=== PATIENT | female | born 1940 | race Caucasian/White ===

== ENCOUNTER → 2023-06-17 12:05 | Outpatient (REF) | payer OTHER, SELFPAY | LOC: RAD 12:05 | PROVIDERS: ATTENDING PHYSICIAN Nurse Practitioner Family | DX: R07.9 Chest pain, unspecified (principal) | CPT/HCPCS: 71046 ==

== ENCOUNTER 2023-07-13 13:18 | Emergency (ER) | payer OTHER, SELFPAY ==
[2023-07-13 13:19] VITALS: BP 165/94
--- NOTE | 2023-07-13 13:35 | ED.MUSCINJ ---
HPI-Injury
General
Chief Complaint: Fall
Source: patient
Exam Limitations: none
Time Seen by Provider: 07/13/23 13:34
Nursing documentation reviewed up to this point in time: agreed with
Travel History
Have you had any contact with someone who has COVID-19?: No
Do you have any symptoms of coronavirus? Fever > 100 degrees, chills, cough, shortness of breath, sore throat, loss of taste or smell, muscle aches, or headache?: No
History of Present Illness-Injury
Initial Injury comments:
82-year-old female with history of HTN, HLD, states she was at outpatient registration for an outpatient right hip x-ray when her foot got caught in the chair and she fell onto her left side. She now has pain in the lower left rib area and also the
left knee. She denies hitting her head. She is not anticoagulated.
Past History
Past History
ED Past Medical History: GERD, HTN, Hypercholesterolemia, Psychiatric (MDD) and Other (sciatica , raynouds, diverticulitis, IBS, Anemia, Thrombocytopenia, scleroderma); Negative CAD
ED Past Surgical History: Gynecological (hysterectomy Partial) and Orthopedic (R median nerve wrap,, left patella repair. Back surgery, Right tendon arm repair); Negative Cardiac
Social History
Tobacco: Non-smoker
Alcohol: None
Drug: None
Personal:
Living: alone
Employment: Retired
Family History
Family History: CAD
Review of Systems
Review of Systems
Allergies reviewed?: Yes
All Other Systems: ROS reviewed and negative except as documented in HPI and ROS
Constitutional: Denies fever
Respiratory: Denies trouble breathing
Cardiac: Denies chest pain
ABD/GI: Denies abdominal pain
: Denies incontinence
Musculoskeletal: Reports other (acute pain left ribs, left knee, chronic right hip pain); Denies edema, neck pain or back pain
Skin: Reports no symptoms
Neurological: Reports no symptoms
Phy Exam
Physical Exam
Physical Exam:
GENERAL: No acute distress. A&Ox3.
CONSTITUTIONAL: Afebrile.
EYES: Clear, conjunctivae normal
ENMT: moist mucus membranes, Pharynx nl
RESPIRATORY: Regular respirations, nonlabored, lungs clear.
CARDIOVASCULAR: Regular rate and rhythm, no murmurs, no rubs.
GI: Soft, nontender, normal BS
MUSCULOSKELETAL: No spinal bony tenderness. Tender mid to lower left lateral ribs, no swelling or discoloration here. Left knee with small area of mild ecchymosis and superficial abrasion, no significant bony tenderness. Full range of motion.
Both legs with full range of motion, ambulates well. Moves with ease. Well perfused.
SKIN: Warm, dry, pink
PSYCH: Normal mood and affect. Well kept, interactive and appropriate
NEUROLOGIC: Awake, alert and oriented. No focal neurological deficits
Injury Course
Orders/Labs/Results
Orders:
Orders
07/13/23 13:46
CR Knee - Left 4 Or More View* Urgent
Comment:
Reason For Exam: fall
Hip, Right 2-3 Views [CR Hip - RT w/wo Pel 2-3 Vw*] Urgent
Comment:
Reason For Exam: PCP order, fell in registration for out pt xray
Include a pelvis x-ray?: No
Ribs, Left 3 View W/PA Chest CR [CR Ribs-left 3 Vw W/pa Chest] Urgent
Comment:
Reason For Exam: pain lower ribs afterf fall
MDM/Problems Addressed
MDM/Problems Addressed:
82-year-old female with history of HTN, HLD, states she was at outpatient registration for an outpatient right hip x-ray when her foot got caught in the chair and she fell onto her left side. She now has pain in the lower left rib area and also the
left knee. She denies hitting her head. She is not anticoagulated.
Patient is moving around relatively easily, she is able to get off the bed, twist [id number], ambulate well
X-rays initially read by this examiner:
X-ray left ribs: No acute abnormality noted, no obvious rib fractures
X-ray left knee: No acute abnormality noted
X-ray right hip added simply because she was here for an outpatient hip x-ray when she fell: DJD, no acute bony abnormality noted
Patient ambulated out with normal gait at discharge
*Critical Care Note
Total Time (30-74mins, 75-104mins- exclusive of procedures): Not Applicable
ED Attending Note
-
Portions of this chart may have been created with voice recognition software.� Occasional wrong word or��sound alike� substitutions may have occurred due to the inherent limitations of voice recognition software.
Discharge Plan
Departure
Patient Disposition: Home (Routine Discharge)
Date of Disposition: 07/13/23
Time of Disposition: 15:01
Patient with high blood pressure during this ER visit?: No
Condition: Good
Discharge Problem:
Fall from slip, trip, or stumble, Contusion of left knee, Contusion of rib on left side, Chronic pain of right hip
Instructions: Contusion (DC), Preventing falls in adults
Prescriptions:
No Action
latanoprost 1 DROP drops
1 drp BOTH EYES HS
aspirin 81 MG tablet,delayed release (DR/EC)
81 mg PO DAILY
hydroxyurea 500 MG capsule
500 mg PO MOWEFR
famotidine 20 MG tablet
20 mg PO DAILY
sertraline 50 MG tablet
50 mg PO HS
Prolia 60 MG/ML syringe
60 mg SQ .EVERY 6 MONTHS
amlodipine 5 mg tablet
5 mg PO HS
omeprazole 40 mg capsule,delayed release(DR/EC)
40 mg PO BID
budesonide 3 mg capsule,delayed,extend.release
3 mg PO TID
rosuvastatin 5 mg tablet
5 mg PO MOWEFR
levofloxacin 750 mg tablet
750 mg PO DAILY 10 Days Qty: 10 0RF
ciprofloxacin HCl [Cipro] 500 mg tablet
500 mg PO BID Qty: 20 0RF
Referrals:
Jaylen Arizmendi MD [Family Provider] - As needed
Activity Restrictions/Additional Instructions:
As we discussed, your right hip x-ray shows some degenerative disease/arthritis but no fracture or dislocation.
Your rib x-ray shows no fracture. Your knee x-ray shows no fracture
You may be stiff and sore for a couple of days but no significant injury.
Tylenol as needed for pain.
Interventions
Interventions:
*Risk Screen - Suicide Last Done: 07/13/23 13:48
*General Assessment Last Done: 07/13/23 13:48
*Neglect/Abuse Screening Last Done: 07/13/23 13:48
*Nursing Disposition Last Done: 07/13/23 15:23
ED-Musculoskeletal Assessment Last Done: 07/13/23 13:48
ED- Neurological Assessment Last Done: 07/13/23 13:48
ED-Skin Assessment Last Done: 07/13/23 13:48
Discharge Date and Time
Discharge Date/Time: 07/13/23 15:23
[2023-07-13 15:22] VITALS: BP 154/99
== END 2023-07-13 15:23 | disposition home or self-care (01) ==
LOC: EMR 13:18
PROVIDERS: EMERGENCY PHYSICIAN Emergency Medicine; FAMILY PHYSICIAN Family Medicine
DX: S80.02XA Contusion of left knee, initial encounter (principal); S20.20XA Contusion of thorax, unspecified, initial encounter; G89.29 Other chronic pain; M25.551 Pain in right hip; W01.0XXA Fall on same level from slipping, tripping and stumbling without subsequent striking against object, initial encounter; I10 Essential (primary) hypertension; K21.9 Gastro-esophageal reflux disease without esophagitis; E78.00 Pure hypercholesterolemia, unspecified; K58.9 Irritable bowel syndrome, unspecified; D64.9 Anemia, unspecified; D69.6 Thrombocytopenia, unspecified; M34.9 Systemic sclerosis, unspecified
CPT/HCPCS: 99283; 71101; 73502; 73564

== ENCOUNTER → 2023-07-16 10:20 | Outpatient (REF) | payer OTHER, SELFPAY | LOC: RAD 10:20 | PROVIDERS: ATTENDING PHYSICIAN Nurse Practitioner Family | DX: R07.81 Pleurodynia (principal); W19.XXXA Unspecified fall, initial encounter | CPT/HCPCS: 71101 ==

== ENCOUNTER 2023-08-20 16:12 | Emergency (ER) | payer OTHER, SELFPAY ==
[2023-08-20 16:16] VITALS: BP 148/96
[2023-08-20 16:35] LABS: % Basophils 0.6 % (0-2); % Eosinophils 1.8 % (0-6); % Immature Granulocytes 0.6 % (0-0.5); % Lymphocytes 21.8 % (20.5-51.1); % Monocytes 9.2 % (1.7-9.3); Absolute Eosinophils 0.1 10^3/uL (0-0.7); Absolute Lymphocytes 1.1 10^3/uL (1.2-3.4); Absolute Monocytes 0.5 10^3/uL (0.1-0.6); Absolute Neutrophils 3.3 10^3/uL (1.4-6.5); Hematocrit 33.1 % (37.0-47.0); Hemoglobin 11.7 g/dL (12.0-16.0); Mean Corp Hgb Conc. 35.3 g/dL (33.0-37.0); Mean Corpuscular Hgb 33.6 pg (27.0-31.0); Mean Corpuscular Volume 95.1 fL (81.0-99.0); Mean Platelet Volume 8.5 fL (7.4-10.4); Nucleated Red Blood Cells % 0 %; Platelet Count 278 10^3/uL (130-400); Red Blood Cell Count 3.48 10^6/uL (4.20-5.40); Red Cell Dist. Width 15.6 % (11.5-14.5)
[2023-08-20 16:46] LABS: INR 1.16; PT 14.6 Sec (11.4-14.6)
[2023-08-20 16:47] LABS: APTT 30.9 Sec (23.4-35.0)
[2023-08-20 16:57] LABS: ALT (SGPT) 16 U/L (0-35); AST (SGOT) 26 U/L (14-36); Albumin 4.7 g/dl (3.5-5.0); Alkaline Phosphatase 70 U/L (38-126); Blood Urea Nitrogen 19 mg/dl (7-17); Calcium 9.5 mg/dl (8.4-10.2); Carbon Dioxide 25 mmol/L (22-30); Chloride 96 mmol/L (98-107); Glucose 104 mg/dl (70-99); Potassium 4.3 mmol/L (3.5-5.1); Sodium 130 mmol/L (135-145); Total Bilirubin 0.4 mg/dl (0.2-1.3); Total Protein 7.4 g/dl (6.3-8.2); eGFR > 60.00
--- NOTE | 2023-08-20 17:39 | ED.GENMED ---
History of Present Illness
General
Chief Complaint: Rectal Bleeding
Source: patient
Exam Limitations: none
Time Seen by Provider: 08/20/23 17:24
Travel History
Have you had any contact with someone who has COVID-19?: No
Do you have any symptoms of coronavirus? Fever > 100 degrees, chills, cough, shortness of breath, sore throat, loss of taste or smell, muscle aches, or headache?: No
History of Present Illness
History of Present Illness:
See MDM
Past History
Past History
ED Past Medical History: GERD, HTN, Hypercholesterolemia, Psychiatric (MDD) and Other (sciatica , raynouds, diverticulitis, IBS, Anemia, Thrombocytopenia, scleroderma); Negative CAD
ED Past Surgical History: Gynecological (hysterectomy Partial) and Orthopedic (R median nerve wrap,, left patella repair. Back surgery, Right tendon arm repair); Negative Cardiac
Social History
Tobacco: Non-smoker
Alcohol: None
Drug: None
Personal:
Living: alone
Employment: Retired
Family History
Family History: CAD
Phy Exam
Physical Exam
Physical Exam:
See MDM
Course
Orders/Labs/Results
Orders:
Orders
08/20/23 16:24
Type+Screen Urgent
Complete Blood Count/With Diff Urgent
Comprehensive Metabolic Panel Urgent
PTT Urgent
Prothrombin Time Urgent
08/20/23 17:54
Budesonide [Entocort EC] 3 mg PO ONCE ONE
08/20/23 18:00
Budesonide [Entocort EC] 3 mg PO ONCE ONE
Budesonide [Entocort EC] 9 mg PO ONCE ONE
08/20/23 19:00
Budesonide [Entocort EC] 9 mg PO ONCE ONE
Abnormal Lab Results
08/20/23
16:24
RBC 3.48 L 10^6/uL
(4.20-5.40)
Hgb 11.7 L g/dL
(12.0-16.0)
Hct 33.1 L %
(37.0-47.0)
MCH 33.6 H pg
(27.0-31.0)
RDW 15.6 H %
(11.5-14.5)
Absolute Lymphs (auto) 1.1 L 10^3/uL
(1.2-3.4)
Immature Gran % 0.6 H %
(0-0.5)
Sodium 130 L mmol/L
(135-145)
Chloride 96 L mmol/L
(98-107)
BUN 19 H mg/dl
(7-17)
Glucose 104 H mg/dl
(70-99)
08/20/23 16:24
08/20/23 16:24
Vital Signs
Initial and Last Documented VS:
Initial Vital Signs
Temp Pulse Resp BP Pulse Ox
98.2 F 70 16 148/96 100
08/20/23 16:16 08/20/23 16:16 08/20/23 16:16 08/20/23 16:16 08/20/23 16:16
Last Documented Vital Signs
Temp Pulse Resp BP Pulse Ox
98.2 F 70 16 148/96 100
08/20/23 16:16 08/20/23 16:16 08/20/23 16:16 08/20/23 16:16 08/20/23 16:16
MDM/Problems Addressed
Differential Diagnosis Includes:
HPI and MDM Narrative:
83-year-old female presenting with dark red blood mixed with stools. Patient states she had 5 episodes today. She states he has a history of ulcerative colitis which was recently diagnosed on a colonoscopy 1 year ago. She states it is normal
stool consistency and the dark red blood appears to be mixed in with the stool. She states the blood escaped the stool once it enters the toilet and leaks out in the water. She denies abdominal pain.
At the time of my evaluation, blood work has returned showing baseline hemoglobin. Patient denies diarrhea or recent antibiotics
Physical exam
General: Well appearing and non-toxic
HEENT: protecting airway
Neck: appears supple
CV: No evidence of cyanosis
Resp: No accessory muscle use
Abd: Non-distended. Soft and nontender
Extremities: No deformities
Neuro: alert
Psych: Normal affect
Skin: Intact
Problems Addressed including Acute and Chronic Conditions affecting care:
1. Lower GI bleed
Acuity: acute
Prognosis: stable
Details: Hemoglobin at baseline. Abdomen soft and nontender. Will discuss case with GI
Updates
5:45 PM Case discussed with GI on-call. We discussed admission versus discharge. Given how well-appearing she is, not being on blood thinners and hemoglobin at baseline, we discussed restarting budesonide for the next 2 weeks and GI will continue
to follow. They will reach out Wednesday. Patient feels very comfortable this plan. I spoke to her son Rey and updated him as well. I did however discuss with patient that she must return at any time if she feels uncomfortable, if the bleeding
increases or she develops worsening pain or fever. We also discussed returning if she develops weakness or fatigue
Differential Diagnosis (but not limited to): Colitis, diverticulitis
Testing considered: CT abdomen/pelvis but she has no abdominal
Drug therapy (if applicable): OTC meds, please see d/c instruction regarding Rx drugs
Amount and/or Complexity of Data Reviewed
Clinical info obtained from: Patient
External data reviewed: N/A
Labs I independently reviewed (but not limited to): [Hemoglobin at baseline
Radiology: N/A
Pulse Ox: not hypoxic
EKG independently reviewed: N/A
Integration Software Developer: N/A
Critical Care: N/A
Risk of Complication:
Social Determinants of health: Good social support
Discussed with other providers: Gastroenterology
Escalation of Care includes Admit/Obs: After being observed in the Emergency Department, pt stable for discharge.
Occasional wrong word or 'sound a like' substitutions may have occurred due to the inherent limitations of voice recognition software. Read the chart carefully and recognize, using context, where substitutions have occurred.
*Critical Care Note
Total Time (30-74mins, 75-104mins- exclusive of procedures): Not Applicable
ED Attending Note
-
Portions of this chart may have been created with voice recognition software.� Occasional wrong word or��sound alike� substitutions may have occurred due to the inherent limitations of voice recognition software.
Discharge Plan
Departure
Patient Disposition: Home (Routine Discharge)
Date of Disposition: 08/20/23
Time of Disposition: 17:54
Patient with high blood pressure during this ER visit?: Yes
Discharge Problem:
Colitis
Instructions: Gastrointestinal Bleeding (DC)
Prescriptions:
New
budesonide [Uceris] 9 mg tablet,delayed and ext.release
9 mg PO DAILY Qty: 14 0RF
No Action
latanoprost 1 DROP drops
1 drp BOTH EYES HS
aspirin 81 MG tablet,delayed release (DR/EC)
81 mg PO DAILY
hydroxyurea 500 MG capsule
500 mg PO MOWEFR
famotidine 20 MG tablet
20 mg PO DAILY
sertraline 50 MG tablet
50 mg PO HS
Prolia 60 MG/ML syringe
60 mg SQ .EVERY 6 MONTHS
amlodipine 5 mg tablet
5 mg PO HS
omeprazole 40 mg capsule,delayed release(DR/EC)
40 mg PO BID
budesonide 3 mg capsule,delayed,extend.release
3 mg PO TID
rosuvastatin 5 mg tablet
5 mg PO MOWEFR
levofloxacin 750 mg tablet
750 mg PO DAILY 10 Days Qty: 10 0RF
ciprofloxacin HCl [Cipro] 500 mg tablet
500 mg PO BID Qty: 20 0RF
Referrals:
NONE,* [Active] -
Activity Restrictions/Additional Instructions:
Please return for any worsening symptoms.
You may return at any time if you have further concerns.
The gastroenterology team is aware you were here today. They want to restart your steroids. I wrote for a 2-week supply. They will reach out Wednesday. If you do not hear from them, please give them a call.
Please return if you develop worsening bleeding, worsening belly pain, fevers or any weakness or fatigue.
Thank you for choosing [facility].
Interventions
Interventions:
*Risk Screen - Suicide Last Done: 08/20/23 16:16
*General Assessment Last Done: 08/20/23 16:16
*Neglect/Abuse Screening Last Done: 08/20/23 16:16
ED- Fall Risk Assessment Last Done: 08/20/23 17:46
*ED COVID-19 Vaccine History Last Done: 08/20/23 17:46
EI-Kbhzdg-Wvynhycmpm Assessment Last Done: 08/20/23 17:46
ED- Cardiac Assessment Last Done: 08/20/23 17:46
ED- Pulmonary Assessment Last Done: 08/20/23 17:46
Discharge Date and Time
Print Language: MOHAWK
[2023-08-20 17:46] VITALS: BMI 17.4
[2023-08-20] MEDS: ENTOCORT EC 9 MG PO (18:13)
[2023-08-20 19:04] VITALS: BP 145/80
== END 2023-08-20 19:07 | disposition home or self-care (01) ==
LOC: EMR 16:12
PROVIDERS: EMERGENCY PHYSICIAN Student in an Organized Health Care Education/Training Program; FAMILY PHYSICIAN Family Medicine
DX: K52.9 Noninfective gastroenteritis and colitis, unspecified (principal); I10 Essential (primary) hypertension; E78.00 Pure hypercholesterolemia, unspecified; K21.9 Gastro-esophageal reflux disease without esophagitis; K58.9 Irritable bowel syndrome, unspecified; K57.92 Diverticulitis of intestine, part unspecified, without perforation or abscess without bleeding; I73.00 Raynaud's syndrome without gangrene; M34.9 Systemic sclerosis, unspecified; F32.9 Major depressive disorder, single episode, unspecified; D64.9 Anemia, unspecified; Z88.6 Allergy status to analgesic agent; Z88.1 Allergy status to other antibiotic agents; Z88.5 Allergy status to narcotic agent; Z79.82 Long term (current) use of aspirin
CPT/HCPCS: 99283; 80053; 85025; 85610; 85730; 86850; 86900; 86901

== ENCOUNTER → 2023-09-06 11:23 | Outpatient (REF) | payer OTHER, SELFPAY | LOC: RAD 11:23 | PROVIDERS: ATTENDING PHYSICIAN Family Medicine | DX: M25.511 Pain in right shoulder (principal) | CPT/HCPCS: 73030 ==

== ENCOUNTER → 2023-10-11 08:00 | Outpatient (REF) | payer OTHER, SELFPAY | LOC: DHCBC/DCA 08:00 | PROVIDERS: ATTENDING PHYSICIAN Internal Medicine Interventional Cardiology; FAMILY PHYSICIAN Family Medicine | DX: R07.89 Other chest pain (principal) | CPT/HCPCS: 78452; 93017; A9500; J2785 ==

== ENCOUNTER → 2023-12-01 10:27 | Outpatient (REF) | payer OTHER, SELFPAY | LOC: RAD 10:27 | PROVIDERS: ATTENDING PHYSICIAN Internal Medicine; FAMILY PHYSICIAN Family Medicine | DX: R10.0 Acute abdomen (principal); K59.00 Constipation, unspecified | CPT/HCPCS: 74019 ==

== ENCOUNTER → 2024-01-07 12:20 | Outpatient (REF) | payer OTHER, SELFPAY | LOC: RAD 12:20 | PROVIDERS: ATTENDING PHYSICIAN Internal Medicine; FAMILY PHYSICIAN Family Medicine | DX: M81.0 Age-related osteoporosis without current pathological fracture (principal) | CPT/HCPCS: 77080 ==

== ENCOUNTER 2024-04-25 13:10 | Emergency (ER) | payer OTHER, SELFPAY ==
[2024-04-25 13:22] VITALS: BP 142/85
--- NOTE | 2024-04-25 14:49 | ED.GENMED ---
History of Present Illness
General
Chief Complaint: Fall
Time Seen by Provider: 04/25/24 14:31
History of Present Illness
History of Present Illness:
Patient is a 83-year-old woman presenting to the emergency department after a fall. Patient states that she was shopping this now when she fell forward hitting her head. She did not lose consciousness. She is not on any blood thinners. She did
land on her left hand. She is complaining of diffuse pain to her left hand. She does have history of Raynaud's and scleroderma and her left hand is always more swollen than her right. No numbness tingling. No weakness. Denies any pain
elsewhere. She does note that she had some bleeding as she bit her lip however it did resolve shortly.
Past History
Past History
ED Past Medical History: GERD, HTN, Hypercholesterolemia, Psychiatric (MDD) and Other (sciatica , raynouds, diverticulitis, IBS, Anemia, Thrombocytopenia, scleroderma); Negative CAD
ED Past Surgical History: Gynecological (hysterectomy Partial) and Orthopedic (R median nerve wrap,, left patella repair. Back surgery, Right tendon arm repair); Negative Cardiac
Social History
Tobacco: Non-smoker
Alcohol: None
Drug: None
Personal:
Living: alone
Employment: Retired
Family History
Family History: CAD
Phy Exam
Physical Exam
Physical Exam:
GENERAL: no acute distress
HEENT: atraumatic, extraocular muscles intact, no signs of entrapment, dentition intact, dried blood to the left side of the mouth, left upper lip at the lateral aspect slightly swollen with small intraoral abrasion with bleeding that is controlled
NECK: no midline tenderness, normal range of motion, no other obvious trauma
BACK: no midline tenderness, no other obvious trauma
CHEST: no tenderness, no flail segment, no subcutaneous emphysema, no other obvious trauma
LUNGS: clear to auscultation bilaterally
CARDIOVASCULAR: regular rate and rhythm
ABDOMEN: soft, non-tender, no masses, no other obvious trauma
PELVIS: stable, no obvious injury
EXTREMITIES: moving all extremities, distal pulses intact, left hand with diffuse swelling, diffuse tenderness over the metacarpals, neurovascularly intact
NEUROLOGIC: awake, alert x 3, no focal deficits
Course
Orders/Labs/Results
Orders:
Orders
04/25/24 13:27
CR Hand - Left Min 3 Views Urgent
Reason For Exam: pain, swelling
04/25/24 14:49
CT Head W/o Iv Contrast Urgent
Comment:
Reason For Exam: fall
Vital Signs
Initial and Last Documented VS:
Initial Vital Signs
Temp Pulse Resp BP Pulse Ox
98.2 F 93 18 142/85 94
04/25/24 13:22 04/25/24 13:22 04/25/24 13:22 04/25/24 13:22 04/25/24 13:22
Last Documented Vital Signs
Temp Pulse Resp BP Pulse Ox
98.2 F 93 18 142/85 94
04/25/24 13:22 04/25/24 13:22 04/25/24 13:22 04/25/24 13:22 04/25/24 13:22
MDM/Problems Addressed
Differential Diagnosis Includes:
Patient is a 83-year-old woman presenting to the emergency department after a fall where she hit her head and landed on her left hand. Vitals unremarkable on exam does show slight swelling to the left lateral lip as well as swelling to her left
hand. Concern for traumatic intracranial injury as well as possible fracture. Patient is up-to-date on her tetanus vaccine. Will obtain CT scan of her head as well as x-ray of the hand. Will pain control. Will remove her rings
*Critical Care Note
Total Time (30-74mins, 75-104mins- exclusive of procedures): Not Applicable
Update Note
Update Note:
On reevaluation patient resting comfortably. The hand swelling has slightly improved with ice and elevation. Her rings have been removed. CT scan of the head per my interpretation with no obvious hemorrhage. Per the official read no acute
intracranial abnormality as well as no acute fracture. Will discharge at this time
ED Attending Note
-
Portions of this chart may have been created with voice recognition software.� Occasional wrong word or��sound alike� substitutions may have occurred due to the inherent limitations of voice recognition software.
Discharge Plan
Departure
Patient Disposition: Home (Routine Discharge)
Date of Disposition: 04/25/24
Time of Disposition: 15:32
Patient with high blood pressure during this ER visit?: No
Discharge Problem:
Fall
Instructions: Concussion, Adult (DC), Preventing falls in adults
Prescriptions:
No Action
latanoprost 1 DROP drops
1 drp BOTH EYES HS
aspirin 81 MG tablet,delayed release (DR/EC)
81 mg PO DAILY
hydroxyurea 500 MG capsule
500 mg PO MOWEFR
famotidine 20 MG tablet
20 mg PO DAILY
sertraline 50 MG tablet
50 mg PO HS
Prolia 60 MG/ML syringe
60 mg SQ .EVERY 6 MONTHS
amlodipine 5 mg tablet
5 mg PO HS
omeprazole 40 mg capsule,delayed release(DR/EC)
40 mg PO BID
budesonide 3 mg capsule,delayed,extend.release
3 mg PO TID
rosuvastatin 5 mg tablet
5 mg PO MOWEFR
levofloxacin 750 mg tablet
750 mg PO DAILY 10 Days Qty: 10 0RF
ciprofloxacin HCl [Cipro] 500 mg tablet
500 mg PO BID Qty: 20 0RF
budesonide [Uceris] 9 mg tablet,delayed and ext.release
9 mg PO DAILY Qty: 14 0RF
Referrals:
Jaylen Arizmendi MD [Family Provider] -
Activity Restrictions/Additional Instructions:
You were seen in the Emergency Department today for a fall. Your x-ray and CT scan did not show anything broken or bleeding.
We would like for you to follow up with your primary care physician for further evaluation. If you experience fever, worsening of your symptoms, or develop any other new or concerning symptoms, please return to the Emergency Department immediately.
Please see the attached sheet for additional information.
Thank you for choosing us for your care
Interventions
Interventions:
*Risk Screen - Suicide Last Done: 04/25/24 13:22
Discharge Date and Time
Print Language: HUNGARIAN
--- NOTE | 2024-04-25 15:47 | EDRN ---
Discharged pt; pt had ring removal by KENTON Peraza before imaging. Pt ambulatory, awake, and alert. Pt reports has ride home, waiting for son.
== END 2024-04-25 15:58 | disposition home or self-care (01) ==
LOC: EMR 13:10
PROVIDERS: EMERGENCY PHYSICIAN Student in an Organized Health Care Education/Training Program; FAMILY PHYSICIAN Family Medicine
DX: S00.512A Abrasion of oral cavity, initial encounter (principal); M79.642 Pain in left hand; W19.XXXA Unspecified fall, initial encounter; K21.9 Gastro-esophageal reflux disease without esophagitis; I10 Essential (primary) hypertension; E78.00 Pure hypercholesterolemia, unspecified
CPT/HCPCS: 99284; 70450; 73130

== ENCOUNTER 2024-05-10 04:10 | Inpatient (IN) | payer OTHER, SELFPAY ==
[2024-05-10] VITALS (29 sets, daily range): BP systolic 77–153; BP diastolic 63–96; BMI 18.6; BMI 17.7
--- NOTE | 2024-05-10 01:10 | ED.GENMED ---
History of Present Illness
General
Chief Complaint: Rectal Bleeding
Source: patient
Exam Limitations: none
Time Seen by Provider: 05/10/24 00:58
History of Present Illness
History of Present Illness:
83-year-old female sudden onset of rectal bleeding at about 930 this evening. Having 5-6 episodes of significant bright red rectal bleeding. No pain. Some abdominal cramps. No lightheadedness or weakness. History of GI bleed and ulcerative
colitis however this is much more severe.
Past History
Past History
ED Past Medical History: GERD, HTN, Hypercholesterolemia, Psychiatric (MDD) and Other (sciatica , raynouds, diverticulitis, IBS, Anemia, Thrombocytopenia, scleroderma); Negative CAD
ED Past Surgical History: Gynecological (hysterectomy Partial) and Orthopedic (R median nerve wrap,, left patella repair. Back surgery, Right tendon arm repair); Negative Cardiac
Social History
Tobacco: Non-smoker
Alcohol: None
Drug: None
Personal:
Living: alone
Employment: Retired
Family History
Family History: CAD
Review of Systems
Review of Systems
All Other Systems: Not applicable
Constitutional: Denies fever
Respiratory: Reports no symptoms
Cardiac: Reports no symptoms
Phy Exam
Physical Exam
Physical Exam:
GENERAL: Alert and oriented in no apparent distress
EYE: Orbits normal.
NECK: Supple
CARDIAC: Regular rate and rhythm without any obvious murmurs.
LUNGS: Clear breath sounds,normal
ABDOMEN: Soft, without focal tenderness or distention. Large amount of blood and clotted blood on the blue pad. Rectal exam with bright red blood in the fingertip. External hemorrhoids not actively bleeding.
NEUROLOGICAL: Alert and oriented , grossly non-focal
SKIN: Warm and dry, no rash or lesion, no discoloration, skin intact.
MUSCULOSKELETAL: No edema,no deformity.Good color
PSYCH: Normal and appropriate interaction.
Course
Orders/Labs/Results
Orders:
Orders
05/10/24 00:58
Cardiac Monitoring- Treatment ONCE
IV Insert/Care/Rem.- Treatment PRN
05/10/24 01:01
Type+Screen Urgent
Complete Blood Count/With Diff Urgent
Comprehensive Metabolic Panel Urgent
05/10/24 01:07
CT Abd/pelvis Angio W/wo Iv Urgent
Comment:
Reason For Exam: Severe lower GI bleed
05/10/24 03:00
Flush (0.9% Sodium Chloride) [Flush (Nss)] See Dose Instructions IV PER PROTOCOL
05/10/24 03:49
Admit/Transfer Patient As Directed
Co-Sign Provider:
Level of Care: Inpatient admission
Assign to:: IMU- Intermediate Care
Physician / Group: Dr. Amaya
Diagnosis: Lower GI bleed
Reason for Hospitalization: Lower GI bleed
Expected length of stay greater than two midnights?: Yes
ELOS- Estimated Length of Stay in days: 5
I certify the patient meets the requirements for IP care: Yes
PRN Pain Medication Management As Directed
May give lesser potent ordered pain med per pt: Yes
preference::
Protocol:: Medication orders for pain may be administered in a
manner that supports deferring to patient preference
when the pt is:
- Requesting an ordered lesser potent pain medication.
Least to most potent pain medications are defined
as: acetaminophen < NSAID < tramadol < opioids
(morphine, oxycodone, hydromorphone).
- Requesting a lesser dose of the same medication IF
ORDERED.
- Requesting a less intrusive route of administration
if both routes are prescribed by the provider (PO <
IV).
05/10/24 03:53
Code Status As Directed
Resuscitation Status: Do not resuscitate
Reached after discussion with pt or family/Healthcare POA: Yes
05/10/24 03:54
DNR Bracelet Application ONCE
05/10/24 04:25
Dextrose 5%/0.9%Sodchl 1000 ml [D5/0.9% Sodium Chloride] 1,000 ml IV 125 mls/hr
05/10/24 04:25
GASTROINTESTINAL CONSULT Routine
Consulting Provider: Kayleen Zhu
Was physician already notified: Yes
Activity As Directed
Activity Level: As Tolerated
INT (Intravenous Needle Therapy) As Directed
Comment: Place 2 IV catheters of the largest bore possible until stable
Orthostatic Vital Signs As Directed
Orthostatic VS Frequency: Now
Comment: then every four hours for twenty-four hours
Pneumatic Compression Sleeves As Directed
Type: Knee high
Vital Signs As Directed
Frequency: Per unit guidelines
DX Deep Vein Thrombosis Video Routine
05/10/24 Breakfast
NPO
Allow oral meds: Yes
Allow clear liquids: No
05/10/24 07:36
H&H Q6H
05/10/24 08:00
Pantoprazole [Protonix IV] 40 mg IV DAILY
05/10/24 15:05
H&H Q6H
05/10/24 19:00
H&H Q6H
05/10/24 22:00
Rosuvastatin Calcium [Crestor] 5 mg PO MoWeFr@HS
Sertraline HCl [Zoloft] 50 mg PO HS
Abnormal Lab Results
05/10/24
01:01
RBC 3.78 L 10^6/uL
(4.20-5.40)
Hct 35.8 L %
(37.0-47.0)
MCH 33.1 H pg
(27.0-31.0)
RDW 15.2 H %
(11.5-14.5)
Abs Immat Gran (auto) 0.1 H 10^3/uL
(0-0.05)
Immature Gran % 2.3 H %
(0-0.5)
Monocytes % 9.6 H %
(1.7-9.3)
Sodium 131 L mmol/L
(135-145)
Chloride 95 L mmol/L
(98-107)
BUN 18 H mg/dl
(7-17)
Glucose 111 H mg/dl
(70-99)
05/10/24 01:01
05/10/24 01:01
Vital Signs
Initial and Last Documented VS:
Initial Vital Signs
Temp Pulse Resp BP
98.0 F 101 20 151/86
05/10/24 00:46 05/10/24 00:46 05/10/24 00:46 05/10/24 00:46
Last Documented Vital Signs
Temp Pulse Resp BP Pulse Ox
98.3 F 73 12 127/57 90
05/10/24 23:32 05/11/24 04:24 05/11/24 04:24 05/11/24 04:24 05/11/24 04:24
MDM/Problems Addressed
Differential Diagnosis Includes:
Stable vital signs but significant lower GI bleed on exam and based on history. Workup in progress. Labs type and screen. We will also get a CT angiography.
*Critical Care Note
Total Time (30-74mins, 75-104mins- exclusive of procedures): Not Applicable
Data Reviewed
Review of Other/Old Records Reveals: Labs, Records and Testing
ED Attending Note
-
Portions of this chart may have been created with voice recognition software.� Occasional wrong word or��sound alike� substitutions may have occurred due to the inherent limitations of voice recognition software.
Discharge Plan
Departure
Patient Disposition: Admit
Date of Disposition: 05/10/24
Time of Disposition: 02:09
Presentation/result/management discussed w/ accepting MD/DO: Hospitalist
Discharge Problem:
Lower GI bleed, History of colitis
Interventions
Interventions:
*Risk Screen - Suicide Last Done: 05/10/24 00:46
*General Assessment Last Done: 05/10/24 00:46
*Neglect/Abuse Screening Last Done: 05/10/24 00:46
ED- Fall Risk Assessment Last Done: 05/10/24 00:53
*ED COVID-19 Vaccine History Last Done: 05/10/24 02:28
*Nursing Disposition Last Done: 05/10/24 22:06
SK-Cfhqff-Ydcqexwobk Assessment Last Done: 05/10/24 02:27
ED- Cardiac Assessment Last Done: 05/10/24 02:27
ED- Pulmonary Assessment Last Done: 05/10/24 02:27
Discharge Date and Time
Discharge Date/Time: 05/10/24 22:08
[2024-05-10 01:11] LABS: % Basophils 0.4 % (0-2); % Eosinophils 0.8 % (0-6); % Immature Granulocytes 2.3 % (0-0.5); % Monocytes 9.6 % (1.7-9.3); % Neutrophils 57.9 % (42.2-75.2); Absolute Immature Granulocytes 0.1 10^3/uL (0-0.05); Absolute Lymphocytes 1.5 10^3/uL (1.2-3.4); Absolute Monocytes 0.5 10^3/uL (0.1-0.6); Hematocrit 35.8 % (37.0-47.0); Hemoglobin 12.5 g/dL (12.0-16.0); Mean Corp Hgb Conc. 34.9 g/dL (33.0-37.0); Mean Corpuscular Hgb 33.1 pg (27.0-31.0); Mean Corpuscular Volume 94.7 fL (81.0-99.0); Mean Platelet Volume 8.8 fL (7.4-10.4); Nucleated Red Blood Cells % 0 %; Platelet Count 315 10^3/uL (130-400); Red Blood Cell Count 3.78 10^6/uL (4.20-5.40); Red Cell Dist. Width 15.2 % (11.5-14.5); White Blood Cell Count 5.1 10^3/uL (4.8-10.8)
[2024-05-10 01:44] LABS: ALT (SGPT) 17 U/L (0-35); AST (SGOT) 25 U/L (14-36); Albumin 4.7 g/dl (3.5-5.0); Alkaline Phosphatase 76 U/L (38-126); Blood Urea Nitrogen 18 mg/dl (7-17); Calcium 9.3 mg/dl (8.4-10.2); Carbon Dioxide 26 mmol/L (22-30); Chloride 95 mmol/L (98-107); Estimated Creatinine Clearance 42 ml/min; Glucose 111 mg/dl (70-99); Potassium 3.9 mmol/L (3.5-5.1); Sodium 131 mmol/L (135-145); Total Bilirubin 0.4 mg/dl (0.2-1.3); Total Protein 7.5 g/dl (6.3-8.2); eGFR > 60.00
--- NOTE | 2024-05-10 03:31 | HPS.HSE ---
Family Physician
-
Family Physician: Luan Pedraza
Chief Complaint
-
Rectal bleeding
History of Present Illness
This is a 83-year-old with past medical history significant for scleroderma, ulcerative colitis, rectal prolapse, diverticulosis, GERD, hypertension who presents to the emergency department with rectal bleeding.
Patient reported that episode started at around 9 PM. Since then she has been having bloody bowel movement. She is passing mostly blood bright red with clots and sometimes maroon-colored stools. She denied any nausea or vomiting. She denies
seeing any black stools. She had no recent episodes of diarrhea or abdominal pain fevers or chills. She denies any NSAID use. She denies any blood thinners. She does take baby aspirin daily. Patient reports prior history of diverticulosis with
occasional bleeding episodes but denies any recent significant bleed.
She was recently seen by GI for rectal prolapse and was referred to colorectal surgery.
On arrival in the emergency department, she was hemodynamically stable with a blood pressure 130/77, pulse of 96 satting 98% on room air. Hemoglobin was 12.5 which is unchanged from prior. She had a normal platelet count. INR was normal. Sodium
was 131 which is similar to prior. Rest of her electrolytes BUN/creatinine were in the normal range.
A CT of the abdomen and pelvis showed active hemorrhage within the sigmoid colon likely diverticular bleed. No dissection or aneurysm. She appears to have incidental finding of likely splenic artery aneurysm partially calcified and measuring up to
1.1 cm which is unchanged from prior.
Medical History
Past Medical History
Past Medical History: Reports GERD, HTN and Hypercholesterolemia
Additional Past Medical History:
Scleroderma
Ulcerative colitis
Rectal prolapse
Past Surgical History: Reports Other
Social History
Tobacco: Non-smoker
Alcohol: None
Drug: None
Personal: Single
Living: With Family
Employment: Retired
Family History
Family History: Not pertinent
Allergies / Home Medications
Allergies reflects when Allergies were last updated in [facility].
Home Medications with original date entered in [facility]
Allergy/Medication List:
Allergies
Allergy/AdvReac Type Severity Reaction Status Date / Time
tetracycline Allergy Nausea, Verified 05/10/24 02:28
stomach
issue
tramadol Allergy nausea and Verified 05/10/24 02:28
vomiting
narcotics Allergy nausea and Uncoded 05/10/24 02:28
vomiting
Home Medications
latanoprost 0.005 % eye drops 1 drp BOTH EYES HS Eye condition 04/15/15
aspirin 81 mg tablet,delayed release 81 mg PO DAILY Blood clot prevention/tx 01/23/18
hydroxyurea 500 mg capsule 500 mg PO MOWEFR high platelets 01/21/21
denosumab 60 mg/mL subcutaneous syringe (Prolia) 60 mg SQ .EVERY 6 MONTHS Osteoporosis 05/15/21
famotidine 20 mg tablet 20 mg PO DAILY Gastrointestinal issue 05/15/21
sertraline 50 mg tablet 50 mg PO HS Mental Health/Anxiety 05/15/21
amlodipine 5 mg tablet 5 mg PO DAILY Blood pressure 08/04/22
omeprazole 40 mg capsule,delayed release 40 mg PO BID Gastrointestinal issue 08/04/22
rosuvastatin 5 mg tablet 5 mg PO MOWEFR High cholesterol 08/04/22
Review of Systems
-
History Source: Patient
Constitutional: Reports No Symptoms
EENT: Reports No Symptoms
Respiratory: Reports No Symptoms
Cardiac: Reports No Symptoms
Abdomen/GI: Reports Bloody Stools
: Reports No Symptoms
Musculoskeletal: Reports No Symptoms
Skin: Reports No Symptoms
Neurological: Reports No Symptoms
Endocrine: Reports No Symptoms
Hematologic/Lymphatic: Reports No Symptoms
Psych: Reports No Symptoms
Physical Exam
Vital Signs
Vital Signs
Temp Pulse Resp BP Pulse Ox
98.0 F 96 22 133/77 97
05/10/24 00:46 05/10/24 03:00 05/10/24 03:00 05/10/24 03:00 05/10/24 03:00
Physical Exam
General: Well Developed, Well Nourished and No Apparent Distress
HEENT: NormoCephalic, Anicteric and Moist mucous membranes
Respiratory: Clear
Cardiac: S1/S2 and Regular Rhythm
Breast: Deferred by me
GI: Soft, Non Tender, Non Distended and Normal Bowel Sounds
Rectal: Red and Hem Negative
Genito-urinary: Deferred by me
Musculoskeletal: No Clubbing, No Cyanosis and No Edema
Skin: Warm
Neuro: AO x 3 and Nonfocal/grossly intact
Hematologic/Lymphatic: No Lymphadenopathy
Psych: Calm
Laboratory Results
-
05/10/24 01:01
05/10/24 01:01
Laboratory Results
Total Bilirubin 0.4 mg/dl (0.2-1.3) 05/10/24 01:01
AST 25 U/L (14-36) 05/10/24 01:01
ALT 17 U/L (0-35) 05/10/24 01:01
Alkaline Phosphatase 76 U/L (38-126) 05/10/24 01:01
Data Reviewed
-
CT Scan: Report Reviewed by me
Medical Tests (Nuc Med, Echo, EKG etc): Image Personally Visualized and interpreted
Lab Data: Labs Reviewed by me
Old Records: Reviewed
Impression/Plan
-
IMPRESSION:
Acute diverticular bleed in patient with scleroderma, ulcerative colitis? and hypertension.
PLAN:
1. GI bleed - diverticular bleed since 9pm, ongoing bleed seen on CT angio with active hemorrhage within the sigmoid colon. SBP is stable. Hgb stable.
- admit to IMU
- type and screen
- consented
- h&H q 8
- maintenance fluids with d5NS at 60, bolus as needed if hypotensive.
- NPO for now except ice-chips and clears
- ppi iv daily
- hold aspiirn, amlodipine and hydroxyurea
- continue her sertraline and and rosuvostatin
- d/w IR, and no arteriograms indicated at this time. Low + yield and high chance of spontanous cessation of bleeding.
- GI consult.
DVT PPX - SCDs
Code status - DNR
[2024-05-10] MEDS: D5/0.9% SODIUM CHLORIDE 1000 IV ×2 (05:12→16:42)
--- NOTE | 2024-05-10 07:39 | CON.GI ---
Addendum entered and electronically signed by Kayleen Zhu MD 05/10/24 18:45:
I saw and examined the patient.
The [employer]GER or PA's note was reviewed and I agree with the note.
Comment: 83-year-old female with history of scleroderma with GI dysmotility, chronic constipation, lymphocytic colitis, DESTINEE, p/w rectal bleeding starting last night, painless bleeding x 3, bright blood with clots. She does have history of rectal
prolapse and intermittent mucus and blood on the toilet tissue but this is much more than her normal pattern. In the ER, hemoglobin did drop from 12.5-8.7
CTA on admission showing active bleeding in sigmoid colon and subsequent angiogram , Successful coil embolization distal ROGE branch vessel arising between SR and sigmoid arteries.
-Active lower GI bleeding, diverticular on imaging now status post coil embolization
Monitor H&H, transfuse as needed
If no further bleeding, start clear liquid diet and advance as tolerated.
-She does have chronic intermittent bleeding on the toilet tissue
Has colorectal surgery appointment this coming Wednesday for rectal prolapse found by Dr. rBown exam
-Continue PPI for reflux
Will follow
Original Note:
Consultation
-
Date/Time Consultation Requested: 05/10/24 0430
Date/Time Consultation Performed: 05/10/24 0900
Requesting Provider: ISRRAEL Myers
Performing Provider: ISRRAEL Anderson, Kayleen Zhu MD
Reason for Consultation: rectal bleeding
Medical History
Chief Complaint / HPI
Chief Complaint: rectal bleeding
History of Present Illness:
Pt is 83yo with hx scleroderma, constipation, lymphocytic colitis, TA polyps, rectal prolapse, diverticulosis, GERD, prior candidiasis,gastric polyps, HH, iron deficiency, lupus, HTN, anxiety/depression, raynaud's with onset of rectal bleeding. On
admission hbg 12.5 with drop to 9.4 after admission. CTA on admission with active hemorrhage within sigmoid with concern for diverticular bleed, also noted splenic artery aneurysm partially calcified and final report pending.
In review with patient she had seen Dr. Brown in GI office for chronic issues. She has longstanding dysphagia with scleroderma and also issues with constipation with intermittent bleeding and mucous from rectum with rectal prolapse. She has
been managed with fiber and due to see colorectal surgery. She also had lymphocytic colitis on prior colonoscopy and given Budesonide at some point but medication lead to constipation and stopped. She now admits to large volume of red blood in
stool since 9:30pm on 05/09. She persisted with blood stools overnight with + CTA IR was called with concern for low yield and procedure held but still with bleeding and drop in hbg overnight. She had chronic GERD on Omeprazole BID, some crampy
abdominal pain and occasional black stools. No anticoagulation and on ASA 81mg daily use. Last colonoscopy 2022 with poor prep, diverticulosis, 5 mm polyp- TA, bx with lymphocytic colitis, EGD 2022 with carolina, med HH, benign gastric polyps.
Past Medical History
Past Medical History: GERD, HTN, Psychiatric (anxiety/depression) and Other (scleroderma, SIBO, constipation, lymphocytic colitis, TA polyps, carolina, gastric polyps, HH, rectal prolapse, diverticulosis, diverticulitis, cystitis, MVP,
scoliosis, lupus , iron deficiency, raynauds, osteoporosis )
Past Surgical History: Orthopedic (back fusion, multiple right arm surgeries )
Social History
Tobacco: Non-Smoker
Alcohol: None
Drug: None
Living: Alone
Employment: Retired
Family History
Family History: Other (no family hx GI malignancies )
Allergies / Home Medications
Allergy/AdvReac Type Severity Reaction Status Date / Time
tetracycline Allergy Nausea, Verified 05/10/24 02:28
stomach
issue
tramadol Allergy nausea and Verified 05/10/24 02:28
vomiting
narcotics Allergy nausea and Uncoded 05/10/24 02:28
vomiting
�Medication �Instructions �Recorded
latanoprost 0.005 % eye drops 1 drp BOTH EYES HS Eye condition 04/15/15
aspirin 81 mg tablet,delayed 81 mg PO DAILY Blood clot 01/23/18
release prevention/tx
hydroxyurea 500 mg capsule 500 mg PO MOWEFR high platelets 01/21/21
denosumab 60 mg/mL subcutaneous 60 mg SQ .EVERY 6 MONTHS 05/15/21
syringe (Prolia) Osteoporosis
famotidine 20 mg tablet 20 mg PO DAILY Gastrointestinal 05/15/21
issue
sertraline 50 mg tablet 50 mg PO HS Mental Health/Anxiety 05/15/21
amlodipine 5 mg tablet 5 mg PO DAILY Blood pressure 08/04/22
omeprazole 40 mg capsule,delayed 40 mg PO BID Gastrointestinal issue 08/04/22
release
rosuvastatin 5 mg tablet 5 mg PO MOWEFR High cholesterol 08/04/22
Review of Systems
-
History Source: Patient and Family
Constitutional: Reports Weight Loss (several years ago with diagnosis of scleraderma)
EENT: Reports No Symptoms
Respiratory: Reports No Symptoms
Cardiac: Reports No Symptoms
Abdomen/GI: Reports Abdominal Pain (mild crampy pain ), Diarrhea (hx passage of mucous and blood due colorectal follow up), Constipated, Bloody Stools (recent small amount now large amount since last PM) and Black Stools (at time )
: Reports Dysuria
Musculoskeletal: Reports No Symptoms
Skin: Reports No Symptoms
Neurological: Reports Weakness
Endocrine: Reports No Symptoms
Hematologic/Lymphatic: Reports Bleeding
Vital Signs
Temp Pulse Resp BP Pulse Ox
98.0 F 84 18 110/68 96
05/10/24 00:46 05/10/24 06:00 05/10/24 06:11 05/10/24 06:00 05/10/24 06:00
Physical Exam
Exam
General: Well Developed, Well Nourished and No Apparent Distress
HEENT: Normocephalic and Anicteric
Respiratory: Clear
Cardiac: Regular Rhythm
GI: Soft and Distended (minimal pelvis ? bladder distention )
Rectal: Other (per staff large volume blood recorded in chart )
Musculoskeletal: No Clubbing, No Cyanosis and Other (right arm limited movement with hx multiple surgery )
Skin: Warm and Dry
Neuro: Awake, Alert and AO x 3
Psych: Calm
Results
WBC 5.1 10^3/uL (4.8-10.8) 05/10/24 01:
Hgb 12.5 g/dL (12.0-16.0) 05/10/24 01:
Hct 35.8 % (37.0-47.0) L 05/10/24 01:
MCV 94.7 fL (81.0-99.0) 05/10/24 01:
Plt Count 315 10^3/uL (130-400) 05/10/24 01:01
Absolute Neuts (auto) 3.0 10^3/uL (1.4-6.5) 05/10/24 01:01
Sodium 131 mmol/L (135-145) L 05/10/24 01:
Potassium 3.9 mmol/L (3.5-5.1) 05/10/24 01:
Chloride 95 mmol/L (98-107) L 05/10/24 01:01
Carbon Dioxide 26 mmol/L (22-30) 05/10/24 01:
BUN 18 mg/dl (7-17) H 05/10/24 01:01
Creatinine 0.7 mg/dL (0.6-1.0) 05/10/24 01:
Calcium 9.3 mg/dl (8.4-10.2) 05/10/24 01:
Total Bilirubin 0.4 mg/dl (0.2-1.3) 05/10/24 01:
AST 25 U/L (14-36) 05/10/24 01:
ALT 17 U/L (0-35) 05/10/24 01:
Alkaline Phosphatase 76 U/L (38-126) 05/10/24 01:01
Diagnostic Image Results:
05/09- CTA + sigmoid per ER records final pending
Prior GI Procedures:
07/2022- [facility] colonoscopy- - Preparation of the colon was poor in the
rectum/sigmoid, fair otherwise..
- Diverticulosis in the sigmoid colon.
- One 5 mm polyp in the cecum, removed with a jumbo
cold forceps. Resected and retrieved.
- Random colon biopsies taken
bx with lymphocytic colitis, TA polyp
05/2022 [facility] EGD - Esophageal plaques were found, consistent with
candidiasis.
- Medium-sized hiatal hernia.
- Multiple benign appearing gastric polyps.
- Normal duodenum.
- No specimens collected
Assessment / Plan
-
Pt is 83yo with hx scleroderma, constipation, lymphocytic colitis, TA polyps, rectal prolapse, diverticulosis, GERD, prior candidiasis,gastric polyps, HH, iron deficiency, lupus, HTN, anxiety/depression, raynaud's with onset of rectal bleeding. On
admission hbg 12.5 with drop to 9.4 after admission. CTA on admission with active hemorrhage within sigmoid with concern for diverticular bleed, also noted splenic artery aneurysm partially calcified and final report pending.
-sudden onset of large volume of rectal bleeding
-acute on chronic anemia secondary to acute blood loss
-hx rectal prolapse with passage of blood and mucous
-dysuria/bladder distention
-constipation
-scleroderma/lupus
-chronic dysphagia
-hyponatremia
other med problems:
-hx lymphocytic colitis
-hx SIBO
-hx TA polyps
-diverticulosis
--GERD
-hx carolina
-gastric polyps
-HH
-DESTINEE
-HTN
-anxiety/depression
-raynaud's
-osteoporosis
PLAN:
etiology of bleeding related to diverticular bleed( hx colon 2023 with diverticulosis in sigmoid), rectal prolapse related with some chronic intermittent bleeding vs other
ER reviewed with IR for embolization overnight and concern for low yield. She continued with bleeding this am with drop in hbg and IR was recontacted by Dr. Sanon this am
final read of CT pending
trend hbg and stool record
transfuse less than 7
NPO
if IR procedure neg and continued bleeding consider colonoscopy
cont PPi with hx GERD
per Dr. Neville pt will need sanford placed and c/o dysuria-- I reviewed with nursing staff
due OP follow up with colorectal for concern for prolapse
son updated on plan
-
-
Thank you for consultation and allowing me to participate in the patient's care. Please call the special education science teacher GI physician during the after hours with any questions or concerns.
[2024-05-10] MEDS: NSS (PRESERVATIVE FREE) 10 ML IV (07:58)
[2024-05-10] MEDS: PROTONIX IV 40 MG IV (07:58)
[2024-05-10 08:05] LABS: Hematocrit 27.5 % (37.0-47.0); Hemoglobin 9.4 g/dL (12.0-16.0)
--- NOTE | 2024-05-10 08:21 | W.PN.HOSP.TC ---
Today's Communication/Plan
-
.
Assessment / Plan
Assessment / Plan
Ms. Zeinab Machado is an 83yo F pmh HTN, ulcerative colitis, diverticulosis, scleroderma, anemia, and thrombocytopenia admitted for a lower GI bleed.
Lower GI bleed
- Abdomen/pelvis CT: Active gastrointestinal hemorrhage in the distal sigmoid colon. Advanced aortic atherosclerotic changes. Stenosis of celiac axis. 1.2 cm rim calcified splenic artery aneurysm. Small hiatal hernia. Distal esophagus distended with
air and ingested material compatible with dysmotility or reflux. Bilateral renal cortical scarring and cortical thinning
- IVF w D5NS
- hold ASA, amlodipine, hydroxyurea
- IV PPI
- no angiogram indicated at this time due to low positive yield and high probability of spontaneous bleeding cessation - IR contacted for re-evaluation for continued bleeding and drop in hemoglobin
- GI consulted
Anemia
- dropping
- H&H q8h
- transfuse for Hb<7, or Hb<8 with active bleeding
HLD
- cont rosuvastatin
Depression
- cont sertraline
Diet: NPO - ice chips ok
DVT PPX: SCDs
Code status: DNR
Anticipated Discharge: 24 - 48 hours
Subjective/Interval History
-
Date of Service: May 10, 2024
Ms. Zeinab Machado is an 83yo F pmh HTN, ulcerative colitis, diverticulosis, scleroderma, anemia, and thrombocytopenia admitted for a lower GI bleed. Pt developed rectal bleeding about 9:30pm last night. Had several episodes of significant bright red
blood per rectum. Occasionally passed blood clots. Daily ASA. Recently seen by GI for rectal prolapse and referred to colorectal surgery.
Objective Data
-
Labs:
Laboratory Results
05/10/24 05/10/24 05/10/24
01:01 07:36 13:00
WBC 5.1
Hgb 12.5 9.4 L D Pending
Hct 35.8 L 27.5 L Pending
Plt Count 315
Sodium 131 L
Potassium 3.9
Chloride 95 L
Carbon Dioxide 26
BUN 18 H
Creatinine 0.7
Glucose 111 H
Calcium 9.3
Total Bilirubin 0.4
AST 25
ALT 17
Alkaline Phosphatase 76
05/10/24
19:00
WBC
Hgb Pending
Hct Pending
Plt Count
Sodium
Potassium
Chloride
Carbon Dioxide
BUN
Creatinine
Glucose
Calcium
Total Bilirubin
AST
ALT
Alkaline Phosphatase
Vital Signs:
Vital Signs
Temp Pulse Resp BP Pulse Ox
98.0 F 84 18 110/68 96
05/10/24 00:46 05/10/24 06:00 05/10/24 06:11 05/10/24 06:00 05/10/24 06:00
Review of Systems
-
History Source: Patient
Constitutional: Reports No Symptoms
EENT: Reports No Symptoms Reported
Respiratory: Reports No Symptoms
Cardiac: Reports No Symptoms
Abdomen/GI: Reports Abdominal Pain, Diarrhea, Constipated and Bloody Stools
Genitourinary: Reports Dysuria
Musculoskeletal: Reports No Symptoms
Skin: Reports No Symptoms
Neuro: Reports No Symptoms
Hematologic / Lymphatic: Reports Bleeding
Physical Exam
-
General: Well Developed and Well Nourished
HEENT: Normocephalic and Atraumatic
Respiratory: Clear to Auscultation
Cardiac: Regular Rhythm and S1/S2
GI: Soft, Nontender, Nondistended and Normal Bowel Sounds
Genito-urinary: No Costovertebral Tender
Musculoskeletal: No Clubbing, No Cyanosis and No Edema
Skin: Warm and Dry
Neuro: AO x 3
--- NOTE | 2024-05-10 09:27 | W.PN.UPDATE ---
Update Note
Progress Note Update
I saw and evaluated the patient. I reviewed the resident�s note and agree with findings and plan as documented in the resident�s note.
Denies chest pain or shortness of breath. Reports abdominal cramping. This morning had another bloody bowel movement.
Gen: NAD, AAOx3.
Eyes: EOMI, PERRLA, no scleral icterus.
Neck: supple.
CV: RRR, +S1/S2, no m/r/g.
Resp: CTAB, no rales, wheezes, or rhonchi.
Abd: +BS, soft, NT, ND
Skin: No rashes.
Neuro: CN 2-12 intact, non-focal.
Psych: Normal mood and affect.
Acute blood loss anemia due to rectal bleeding, likely diverticular:
-Overnight patient had a positive CT angiogram of the abdomen. At that time interventional radiology did not feel coil embolization was indicated.
-With recurrent bleeding this morning and significant drop in hemoglobin I have recontacted interventional radiology to assess for coil embolization.
-trend Hb, blood consent obtained
-holding home ASA/Norvasc
-NPO
-increase IVFs to 125cc/hr
-GI following, discussed with GI
Other problems:
HLD: cont statin
Essential HTN: holding Norvasc
GERD: cont PPI
UC, scleroderma: Holding hydroxyurea
DNR/SCDs/IMU
--- NOTE | 2024-05-10 14:05 | W.PN.IRAD.PR ---
Procedure Note
-
Post ROGE arteriography, selective and sub selective ROGE arteriography. Active extrav identified at same level previous CTA. Successful coil embolization distal ROGE branch vessel arising between SR and sigmoid arteries. No immediate complications. 5
Fr Mynx closure device deployed R CF arteriotomy site.
[2024-05-10 15:20] LABS: Hematocrit 26.2 % (37.0-47.0); Hemoglobin 8.7 g/dL (12.0-16.0)
[2024-05-10] MEDS: TYLENOL 650 MG PO (16:43)
[2024-05-10 19:23] LABS: Hemoglobin 8.1 g/dL (12.0-16.0)
[2024-05-10] MEDS: CRESTOR PO ×2 (22:26→22:30)
[2024-05-10] MEDS: ZOLOFT 50 MG PO (22:26)
--- NOTE | 2024-05-10 22:57 | PTCARENOTE ---
Received pt from ED at 21:40. Pt pulled from stretcher to bed with assistx3. AAOx3, VSS. NSR on the monitor. Lungs diminished on RA. Abdomen soft, nontender. Pt passing blood clots per rectum. Sanford care performed, sanford draining yellow urine.
Bruises to R upper arm and L side of face from previous fall 2 weeks ago. D5 1/2NS@125ml/hr through R FA. Call blunt and belongings within reach. Able to make needs known. Care ongoing.
[2024-05-11] VITALS (17 sets, daily range): BP systolic 94–161; BP diastolic 57–85; BMI 18.1
[2024-05-11] MEDS: D5/0.9% SODIUM CHLORIDE 1000 IV ×3 (02:11→23:03)
--- NOTE | 2024-05-11 03:06 | PTCARENOTE ---
pt still passing blood clots per rectum. small clots noted. patient cleaned up. pt admits to feeling some cramping in her abdomen. sanford care done. care ongoing.
[2024-05-11 05:15] LABS: ALT (SGPT) 11 U/L (0-35); AST (SGOT) 16 U/L (14-36); Albumin 2.9 g/dl (3.5-5.0); Alkaline Phosphatase 56 U/L (38-126); Blood Urea Nitrogen 9 mg/dl (7-17); Calcium 7.1 mg/dl (8.4-10.2); Carbon Dioxide 22 mmol/L (22-30); Chloride 106 mmol/L (98-107); Estimated Creatinine Clearance 47 ml/min; Glucose 122 mg/dl (70-99); Potassium 3.3 mmol/L (3.5-5.1); Sodium 136 mmol/L (135-145); Total Bilirubin 0.2 mg/dl (0.2-1.3); Total Protein 5.2 g/dl (6.3-8.2); eGFR > 60.00
[2024-05-11 05:24] LABS: Hematocrit 22.6 % (37.0-47.0); Hemoglobin 7.7 g/dL (12.0-16.0); Mean Corp Hgb Conc. 34.1 g/dL (33.0-37.0); Mean Corpuscular Hgb 32.9 pg (27.0-31.0); Mean Corpuscular Volume 96.6 fL (81.0-99.0); Platelet Count 241 10^3/uL (130-400); Red Blood Cell Count 2.34 10^6/uL (4.20-5.40); Red Cell Dist. Width 15.6 % (11.5-14.5); White Blood Cell Count 4.7 10^3/uL (4.8-10.8)
--- NOTE | 2024-05-11 07:59 | W.PN.HOSP.TC ---
Today's Communication/Plan
-
.
Assessment / Plan
Assessment / Plan
Ms. Zeinab Machado is an 83yo F pmh HTN, ulcerative colitis, diverticulosis, scleroderma, anemia, and thrombocytopenia admitted for a lower GI bleed.
Lower GI bleed
- Abdomen/pelvis CT: Active gastrointestinal hemorrhage in the distal sigmoid colon. Advanced aortic atherosclerotic changes. Stenosis of celiac axis. 1.2 cm rim calcified splenic artery aneurysm. Small hiatal hernia. Distal esophagus distended with
air and ingested material compatible with dysmotility or reflux. Bilateral renal cortical scarring and cortical thinning
- IVF w D5NS
- hold ASA, amlodipine, hydroxyurea
- IV PPI
- angiogram - Successful coil embolization distal ROGE branch vessel arising between SR and sigmoid arteries
- GI consulted
Hypokalemia
- replete w KCl 40mg x2
Anemia
- dropping, but stabilized
- transfuse for Hb<7
HLD
- cont rosuvastatin
Depression
- cont sertraline
Diet: NPO - ice chips ok
DVT PPX: SCDs
Code status: DNR
Anticipated Discharge: 24 - 48 hours
Subjective/Interval History
-
Date of Service: May 11, 2024
Ms. Zeinab Machado is an 83yo F pmh HTN, ulcerative colitis, diverticulosis, scleroderma, anemia, and thrombocytopenia admitted for a lower GI bleed. Underwent successful coil embolization of the distal ROGE branch vessel arising between SR and sigmoid
arteries yesterday. She had 1 episode of passing red blood clots per rectum.
Objective Data
-
Labs:
Laboratory Results
05/11/24
04:10
WBC 4.7 L
Hgb 7.7 L
Hct 22.6 L
Plt Count 241 D
Sodium 136
Potassium 3.3 L
Chloride 106
Carbon Dioxide 22
BUN 9
Creatinine 0.6
Glucose 122 H
Calcium 7.1 L D
Total Bilirubin 0.2
AST 16
ALT 11
Alkaline Phosphatase 56
Vital Signs:
Vital Signs
Temp Pulse Resp BP Pulse Ox
97.7 F 84 12 128/61 97
05/11/24 06:06 05/11/24 06:00 05/11/24 06:00 05/11/24 06:00 05/11/24 06:00
I&O
05/10/24 05/11/24 05/12/24
06:59 06:59 06:59
Intake Total 1200 / 1200
Balance 1200 / 1200
Review of Systems
-
History Source: Patient
Constitutional: Reports No Symptoms
EENT: Reports No Symptoms Reported
Respiratory: Reports No Symptoms
Cardiac: Reports No Symptoms
Abdomen/GI: Reports Abdominal Pain and Bloody Stools; Denies Nausea or Vomiting
Genitourinary: Reports No Symptoms
Musculoskeletal: Reports No Symptoms
Skin: Reports No Symptoms
Neuro: Reports No Symptoms
Physical Exam
-
General: Well Developed and Well Nourished
HEENT: Normocephalic, Atraumatic and Anicteric
Respiratory: Clear to Auscultation
Cardiac: Regular Rhythm and S1/S2
GI: Soft, Nontender, Nondistended and Other (hypoactive BS)
Musculoskeletal: No Clubbing, No Cyanosis and No Edema
Skin: Warm and Dry
Neuro: AO x 3
Psych: Calm
[2024-05-11] MEDS: PROTONIX IV 40 MG IV (08:12)
[2024-05-11] MEDS: NSS (PRESERVATIVE FREE) 10 ML IV (08:13)
--- NOTE | 2024-05-11 08:15 | W.PN.GENERIC ---
Assessment / Plan
-
This is an 83-year-old female with history of scleroderma, GI dysmotility, chronic constipation, lymphocytic colitis, DESTINEE, who was admitted with LGIB and positive CTA. She had coil embolization of ROGE in IR yesterday. She had 1 further episode of
rectal bleeding through the night.
Monitor for continued bleeding
Monitor H&H, transfuse as needed
I spent 40 minutes reviewing medical records, laboratory studies and all relevant imaging as well as evaluating and examining the patient, documenting, counseling the patient and reviewing the treatment plan.
Physician Progress Note
Subjective
This is an 83-year-old female with history of scleroderma, GI dysmotility, chronic constipation, lymphocytic colitis, DESTINEE, who presented to the ER with painless bright red rectal bleeding that started the night before admission. She reports she had
3 episodes of bright blood with clots. She does have history of rectal prolapse and blood on the toilet tissue but this is much more than her normal pattern. In the ER, her hemoglobin did drop from 12.5-8.7. She had a CTA showing active bleeding
in sigmoid colon and subsequent angiogram. She underwent successful coil embolization of the distal ROGE branch vessel arising between SR and [facility] She reports one furhter episode of BRBPR early this morning with a few
small clots. She is still having some abdominal cramping. She denies N/V/F/C/palpitations, SOB.
Past Medical History
GERD, HTN, scleroderma, SIBO, constipation, lymphocytic colitis, TA polyps, [place], gastric polyps, HH, rectal prolapse, diverticulitis, cystitis, MVP, scoliosis, lupus , iron deficiency, Raynauds, osteoporosis
Past Surgical History:
Back fusion, multiple right arm surgeries
Social History
Tobacco: Non-Smoker
Alcohol: None
Living: Alone
Allergies:
Allergy/AdvReac Type Severity Reaction Status Date / Time
tetracycline Allergy Nausea, Verified 05/10/24 02:28
stomach
issue
tramadol Allergy nausea and Verified 05/10/24 02:28
vomiting
narcotics Allergy nausea and Uncoded 05/10/24 02:28
vomiting
Medication List:
�Medication �Instructions �Recorded
latanoprost 0.005 % eye drops 1 drp BOTH EYES HS Eye condition 04/15/15
aspirin 81 mg tablet,delayed 81 mg PO DAILY Blood clot 01/23/18
release prevention/tx
hydroxyurea 500 mg capsule 500 mg PO MOWEFR high platelets 01/21/21
denosumab 60 mg/mL subcutaneous 60 mg SQ .EVERY 6 MONTHS 05/15/21
syringe (Prolia) Osteoporosis
famotidine 20 mg tablet 20 mg PO DAILY Gastrointestinal 05/15/21
issue
sertraline 50 mg tablet 50 mg PO HS Mental Health/Anxiety 05/15/21
amlodipine 5 mg tablet 5 mg PO DAILY Blood pressure 08/04/22
omeprazole 40 mg capsule,delayed 40 mg PO BID Gastrointestinal issue 08/04/22
release
rosuvastatin 5 mg tablet 5 mg PO MOWEFR High cholesterol 08/04/22
Objective
Vital Signs
Temp Pulse Resp BP Pulse Ox
97.7 F 84 12 128/61 97
05/11/24 06:06 05/11/24 06:00 05/11/24 06:00 05/11/24 06:00 05/11/24 06:00
Lab Results
05/11/24 04:10
05/11/24 04:10
This is a WNWD 83 yo female who is AA&O in NAD sitting up in bed. Color is pale. Skin is warm and dry. Neck is supple. Heart is regular. Lungs are CTA. Abdomen is soft and nontender with bowel sounds. Right groin drressing CDI. No hematoma.
Palpable inguinal and pedal pulses. No LE edema
[2024-05-11] MEDS: KCL ELIXIR 40 MEQ PO ×2 (09:18)
--- NOTE | 2024-05-11 10:17 | W.PN.GI.CBS2 ---
Today's Communication / Plan
-
Plan
-Active lower GI bleeding, diverticular on imaging now status post coil embolization
Noted hemoglobin did drop down to 7.7, will benefit from a unit of packed red blood cells.
Monitor H&H
Okay to start clear liquid diet and advance as tolerated.
Monitor electrolytes and replete per hospitalist team, potassium at 3.3
-She does have chronic intermittent bleeding on the toilet tissue
Has colorectal surgery appointment this coming Wednesday for rectal prolapse found by Dr. Brown exam
-Continue PPI for reflux
Assessment / Plan
-
Pt is 83yo with hx scleroderma, constipation, lymphocytic colitis, TA polyps, rectal prolapse, diverticulosis, GERD, prior candidiasis,gastric polyps, HH, iron deficiency, lupus, HTN, anxiety/depression, raynaud's with onset of rectal bleeding. On
admission hbg 12.5 with drop to 9.4 after admission. CTA on admission with active hemorrhage within sigmoid with concern for diverticular bleed, also noted splenic artery aneurysm partially calcified and final report pending.
-sudden onset of large volume of rectal bleeding
-acute on chronic anemia secondary to acute blood loss
-hx rectal prolapse with passage of blood and mucous
-dysuria/bladder distention
-constipation
-scleroderma/lupus
-chronic dysphagia
-hyponatremia
other med problems:
-hx lymphocytic colitis
-hx SIBO
-hx TA polyps
-diverticulosis
--GERD
-hx carol[place]
-gastric polyps
-HH
-DESTINEE
-HTN
-anxiety/depression
-raynaud's
-osteoporosis
CTA on admission showing active bleeding in sigmoid colon and subsequent angiogram , Successful coil embolization distal ROGE branch vessel arising between SR and sigmoid arteries.
Plan
-Active lower GI bleeding, diverticular on imaging now status post coil embolization
Noted hemoglobin did drop down to 7.7, will benefit from a unit of packed red blood cells.
Monitor H&H
Okay to start clear liquid diet and advance as tolerated.
Monitor electrolytes and replete per hospitalist team, potassium at 3.3
-She does have chronic intermittent bleeding on the toilet tissue
Has colorectal surgery appointment this coming Wednesday for rectal prolapse found by Dr. Brown exam
-Continue PPI for reflux
Subjective
Subjective
Date of Service: May 11, 2024
Patient reports having a small dark bowel movement overnight but nothing significant. Noted hemoglobin did drop to 7.7.
Objective
Data Reviewed
Laboratory Data:
Laboratory Results
05/11/24 04:10
05/11/24 04:10
Laboratory Results
Total Bilirubin 0.2 mg/dl (0.2-1.3) 05/11/24 04:10
AST 16 U/L (14-36) 05/11/24 04:10
ALT 11 U/L (0-35) 05/11/24 04:10
Alkaline Phosphatase 56 U/L (38-126) 05/11/24 04:10
Vital Signs and I&O:
Vital Signs
Temp Pulse Resp BP Pulse Ox
98.3 F 86 18 94/75 97
05/11/24 07:25 05/11/24 10:00 05/11/24 10:00 05/11/24 10:00 05/11/24 06:00
I&O
05/10/24 05/11/24 05/12/24
06:59 06:59 06:59
Intake Total 1200 / 1200
Balance 1200 / 1200
Physical Exam
Physical Exam
GI: Soft and Non Distended
--- NOTE | 2024-05-11 11:32 | CM ---
Patient seen at bedside. Patient stated that she lives alone in a one story home. Patient has a rolling walker and her PCP is Dr. Charles and she uses the [facility]. Patient has had both [facility] and [facility] in the past. IF patient could have
[facility] she would like them again. Will check with Liaison to see if the area she lives in; [place] is covered at this time. Patient stated that her plan is for discharge home with [facility] if possible. CM will continue to follow for discharge
planning needs.
Plan; home with [facility]; confirm [facility] will cover patient area.
[2024-05-11] MEDS: TYLENOL 650 MG PO ×2 (11:54→21:05)
--- NOTE | 2024-05-11 12:27 | W.PN.UPDATE ---
Update Note
Progress Note Update
I saw and evaluated the patient. I reviewed the resident�s note and agree with findings and plan as documented in the resident�s note.
Denies chest pain or shortness of breath. Still with some clots per rectum and mild abdominal cramping.
Gen: NAD, AAOx3.
Eyes: EOMI, PERRLA, no scleral icterus.
Neck: supple.
CV: remains RRR, +S1/S2, no m/r/g.
Resp: remains CTAB, no rales, wheezes, or rhonchi.
Abd: remains +BS, soft, NT, ND
Skin: No rashes.
Neuro: CN 2-12 intact, non-focal.
Psych: Normal mood and affect.
Acute blood loss anemia due to rectal bleeding, likely diverticular:
-s/p successful coil embolization distal ROGE branch vessel arising between SR and sigmoid arteries on 05/10/24
-transfuse 1U pRBCs
-trend Hb
-holding home ASA/Norvasc
-advanced to clears
-cont IVFs at lower rate
-GI following
Other problems:
HLD: cont statin
Essential HTN: holding Norvasc
GERD: cont PPI
UC, scleroderma: restart hydroxyurea
DNR/SCDs/IMU
--- NOTE | 2024-05-11 15:55 | PTCARENOTE ---
Rec't pt this AM. 1 unit PRBC given. Pt with a few mucoid blood clots per rectum. Clear urine in sanford catheter. vital signs stable. resting comfortably
[2024-05-11] MEDS: ZOLOFT 50 MG PO (20:34)
[2024-05-11] MEDS: XALATAN OPHTHALMIC SOLUTION 1 DROP BOTH EYES (21:05)
[2024-05-11] MEDS: RESTASIS 0.05% OPHTHALMIC EMULSION 1 DROPS BOTH EYES (21:06)
[2024-05-12] VITALS (12 sets, daily range): BP systolic 129–167; BP diastolic 60–90; PULSE 94; BMI 18.0
[2024-05-12 07:00] LABS: Hematocrit 26.9 % (37.0-47.0); Hemoglobin 9.3 g/dL (12.0-16.0); Mean Corp Hgb Conc. 34.6 g/dL (33.0-37.0); Mean Corpuscular Hgb 32.6 pg (27.0-31.0); Mean Corpuscular Volume 94.4 fL (81.0-99.0); Mean Platelet Volume 8.7 fL (7.4-10.4); Platelet Count 248 10^3/uL (130-400); Red Blood Cell Count 2.85 10^6/uL (4.20-5.40); Red Cell Dist. Width 15.9 % (11.5-14.5); White Blood Cell Count 5.2 10^3/uL (4.8-10.8)
[2024-05-12 07:05] LABS: ALT (SGPT) 11 U/L (0-35); AST (SGOT) 18 U/L (14-36); Alkaline Phosphatase 62 U/L (38-126); Blood Urea Nitrogen 5 mg/dl (7-17); Carbon Dioxide 24 mmol/L (22-30); Chloride 106 mmol/L (98-107); Estimated Creatinine Clearance 48 ml/min; Glucose 85 mg/dl (70-99); Potassium 3.8 mmol/L (3.5-5.1); Sodium 136 mmol/L (135-145); Total Bilirubin 0.5 mg/dl (0.2-1.3); Total Protein 5.3 g/dl (6.3-8.2); eGFR > 60.00
--- NOTE | 2024-05-12 08:25 | W.PN.HOSP.TC ---
Today's Communication/Plan
-
PT/OT
urinalysis
Assessment / Plan
Assessment / Plan
Ms. Zeinab Machado is an 83yo F pmh HTN, ulcerative colitis, diverticulosis, scleroderma, anemia, and thrombocytopenia admitted for a lower GI bleed.
Lower GI bleed
- Abdomen/pelvis CT: Active gastrointestinal hemorrhage in the distal sigmoid colon. Advanced aortic atherosclerotic changes. Stenosis of celiac axis. 1.2 cm rim calcified splenic artery aneurysm. Small hiatal hernia. Distal esophagus distended with
air and ingested material compatible with dysmotility or reflux. Bilateral renal cortical scarring and cortical thinning
- IVF w D5NS
- hold ASA, amlodipine, hydroxyurea
- IV PPI
- angiogram - Successful coil embolization distal ROGE branch vessel arising between SR and sigmoid arteries
- GI consulted
Hypokalemia
- replete w KCl 40mg x2
Anemia
- dropping, but stabilized
- transfuse for Hb<7
- received 1 unit PRBCs
Hx fall 2 weeks ago
- PT/OT
Dysuria
- urinalysis w reflex to culture
HLD
- cont rosuvastatin
Depression
- cont sertraline
Diet: low residue
DVT PPX: SCDs
Code status: DNR
Anticipated Discharge: Within 24 hours
Subjective/Interval History
-
Date of Service: May 12, 2024
Ms. Zeinab Machado is an 83yo F pmh HTN, ulcerative colitis, diverticulosis, scleroderma, anemia, and thrombocytopenia admitted for a lower GI bleed. Pt states the passing blood clots per rectum has resolved. Pt concerned for a UTI since before the sanford
catheter was placed. Endorses dysuria. -change in frequency, -hematuria.
Objective Data
-
Labs:
Laboratory Results
05/12/24
06:08
WBC 5.2
Hgb 9.3 L D
Hct 26.9 L
Plt Count 248
Sodium 136
Potassium 3.8
Chloride 106
Carbon Dioxide 24
BUN 5 L
Creatinine 0.6
Glucose 85
Calcium 7.0 L
Total Bilirubin 0.5
AST 18
ALT 11
Alkaline Phosphatase 62
Vital Signs:
Vital Signs
Temp Pulse Resp BP Pulse Ox
98.6 F 77 14 131/61 95
05/12/24 03:00 05/12/24 06:00 05/12/24 06:00 05/12/24 04:00 05/11/24 14:34
I&O
05/11/24 05/12/24 05/13/24
06:59 06:59 06:59
Intake Total 1200 / 1200 1705 / 1705
Output Total 3625 / 3625
Balance 1200 / 1200 -1920 / -1920
Review of Systems
-
History Source: Patient
Constitutional: Reports No Symptoms
EENT: Reports No Symptoms Reported
Respiratory: Reports No Symptoms
Cardiac: Reports No Symptoms
Abdomen/GI: Reports No Symptoms
Genitourinary: Reports No Symptoms
Musculoskeletal: Reports No Symptoms
Skin: Reports No Symptoms
Neuro: Reports No Symptoms
Physical Exam
-
General: Well Developed and Well Nourished
HEENT: Normocephalic, Atraumatic and Anicteric
Respiratory: Clear to Auscultation
Cardiac: Regular Rhythm and S1/S2
GI: Soft, Nontender, Nondistended and Other (hypoactive BS)
Genito-urinary: No Costovertebral Tender
Musculoskeletal: No Clubbing, No Cyanosis and No Edema
Skin: Warm and Dry
Neuro: AO x 3
Psych: Calm
--- NOTE | 2024-05-12 08:56 | W.PN.UPDATE ---
Addendum entered and electronically signed by Shayne Sanon MD 05/12/24 14:08:
Underweight
Original Note:
Update Note
Progress Note Update
I saw and evaluated the patient. I reviewed the resident�s note and agree with findings and plan as documented in the resident�s note.
No BRBPR since I rounded yesterday.
Gen: NAD, AAOx3.
Eyes: EOMI, PERRLA, no scleral icterus.
Neck: supple.
CV: tachy, reg rhythm, +S1/S2, no m/r/g.
Resp: CTAB anteriorly, no rales, wheezes, or rhonchi.
Abd: continues to remain +BS, soft, NT, ND
Skin: No rashes.
Neuro: CN 2-12 intact, non-focal.
Psych: Normal mood and affect.
Acute blood loss anemia due to rectal bleeding, likely diverticular:
-s/p successful coil embolization distal ROGE branch vessel arising between SR and sigmoid arteries on 05/10/24
-s/p 1U pRBCs on 05/11/24 with appropriate rise in Hb
-holding home ASA/Norvasc
-advanced to LR
-stop IVFs
-GI following
Other problems:
HLD: cont statin
Essential HTN: holding Norvasc
GERD: cont PPI
UC, scleroderma: restart hydroxyurea
DNR/SCDs
Transfer to [place]
[2024-05-12] MEDS: RESTASIS 0.05% OPHTHALMIC EMULSION 1 DROPS BOTH EYES ×2 (09:03→20:50)
[2024-05-12] MEDS: PROTONIX IV 40 MG IV (09:03)
[2024-05-12] MEDS: NSS (PRESERVATIVE FREE) 10 ML IV (09:03)
[2024-05-12] MEDS: D5/0.9% SODIUM CHLORIDE IV (09:44)
--- NOTE | 2024-05-12 10:25 | VNURNOTE ---
Home Health Liaison met with patient at bedside to discuss [facility] nurse/therapy, visits, schedule and homebound status. Patient is agreeable and is familiar with our services. She understands that visits at home will be 2-3 x per week to assess and
teach medical management. [facility] brochure provided with contact information. Patient is aware that [facility] will contact them for start of care in 1-2 days after discharge from .
[facility] referral completed in [facility].
--- NOTE | 2024-05-12 10:51 | PN.CDI ---
CDI
- -
CDI:
Physician Documentation Request
Admit Date: 05/10/24 04:10
Dear Doctor Nicolas,
Clinical Indicators:
Height: 5 ft 1 in
Weight: 95 lbs 3.8 oz
BMI: 18.0
05/11 note/assessment: Underweight (<18.5)
If possible, please provide an associated diagnosis related to the abnormal BMI such as:
Underweight
BMI is not significant
Other
Use of terms such as suspected, likely, concern for, or probable (associated with a specific diagnosis that is being evaluated, monitored, or treated as if it exists) are acceptable and can be coded in the inpatient setting, when documented at the
time of discharge.
Thank you,
Leslee Chang RN BSN
CDI Specialist
available via tiger text
Please use your independent medical judgment in providing your response.
--- NOTE | 2024-05-12 11:07 | W.PN.GI.CBS2 ---
Today's Communication / Plan
-
Advance to low residue diet. Okay for d/c from a GI perspective, outpatient f/u with Dr. Brown and colorectal. GI will sign off, please call with questions.
Assessment / Plan
-
83yo with hx scleroderma, constipation, lymphocytic colitis, TA polyps, rectal prolapse, diverticulosis, GERD, prior candidiasis,gastric polyps, HH, iron deficiency, lupus, HTN, anxiety/depression, raynaud's admitted with diverticular hemorrhage
s/p successful IR coil embolization of the distal ROGE branch.
CTA on admission showing active bleeding in sigmoid colon and subsequent angiogram. Successful coil embolization distal ROGE branch vessel arising between SR and sigmoid arteries.
Plan
Transfused with 1 unit of PRBC yesterday when hemoglobin trended down to 7.7. No episodes of bleeding overnight and hemoglobin increased to 9.3 this morning
Advance to low residue diet
Outpatient f/u with Dr. Brown-- scheduled on 06/27
F/u with colorectal surgery for rectal prolapse
Continue PPI for reflux
GI will sign off, please call with questions.
Subjective
Subjective
Date of Service: May 12, 2024
Patient seen in follow-up this morning. No episodes of bleeding overnight. She was transfused with 1 unit of PRBC yesterday, Hgb 7.7 --> 9.3 today. She would like to advance her diet and try getting out of bed.
Objective
Data Reviewed
Laboratory Data:
Laboratory Results
05/12/24 06:08
05/12/24 06:08
Laboratory Results
Total Bilirubin 0.5 mg/dl (0.2-1.3) 05/12/24 06:08
AST 18 U/L (14-36) 05/12/24 06:08
ALT 11 U/L (0-35) 05/12/24 06:08
Alkaline Phosphatase 62 U/L (38-126) 05/12/24 06:08
Vital Signs and I&O:
Vital Signs
Temp Pulse Resp BP Pulse Ox
98.6 F 77 14 131/61 95
05/12/24 03:00 05/12/24 06:00 05/12/24 06:00 05/12/24 04:00 05/11/24 14:34
I&O
05/11/24 05/12/24 05/13/24
06:59 06:59 06:59
Intake Total 1200 / 1200 1705 / 1705
Output Total 3625 / 3625
Balance 1200 / 1200 -1920 / -1920
Physical Exam
Physical Exam
GI: Soft, Non Distended, Non Tender and Normal Bowel Sounds
--- NOTE | 2024-05-12 15:53 | PTCARENOTE ---
Pt downgraded to med surg. Belongings collected from room. Transferred to [facility] via stretcher. Son at bedside.
--- NOTE | 2024-05-12 16:49 | TRANSFER ---
Arrived to unit AAOx3. Pulled over to bed, patient reported bowel incontience and did not want to stand. UA sent per orders. Call blunt within reach. Plan of care ongoing.
[2024-05-12 16:54] LABS: Urine Albumin Trace (Neg - Trace); Urine Bilirubin Negative (Negative); Urine Character Clear (Clear); Urine Color Yellow; Urine Glucose Negative (Negative); Urine Ketone Negative (Negative); Urine Leukocyte 2+ (Negative); Urine Nitrite Positive (Negative); Urine Occult Blood 3+ (Negative); Urine Specific Gravity 1.015 (<1.030); Urine Urobilinogen Negative (Neg - 1+)
--- NOTE | 2024-05-12 17:12 | CM ---
Patient who is s/p transfusion for anemia associated with rectal bleeding. Room Air. PT/OT recommend skilled rehab.
Noting previously setup for home with [facility]. Noting PT/OT recommendations.
Spoke with patient's son Rey; he feels that his mother only worked with PT/OT once so is unsure if SNF for rehab or home with [facility] is best. He expressed concerns that she is continuing to have diarrhea, was lightheaded when up with PT today and
unsteady on her feet. He requests to speak with CM tomorrow and see how she is at that time, to decide on d/c plans.
Plan contact patient's son tomorrow re; SNF vs HH.
[2024-05-12 18:49] LABS: Urine Bacteria Moderate (Negative); Urine White Cell 70-80 /HPF (0-5)
[2024-05-12] MEDS: TYLENOL 650 MG PO (20:54)
[2024-05-12] MEDS: CRESTOR 5 MG PO (20:54)
[2024-05-12] MEDS: ZOLOFT 50 MG PO (20:55)
[2024-05-12] MEDS: XALATAN OPHTHALMIC SOLUTION 1 DROP BOTH EYES (21:50)
[2024-05-12] MEDS: TUMS CHEWABLE TABLET 400 MG PO (23:41)
[2024-05-13 06:35] LABS: Hematocrit 27.8 % (37.0-47.0); Mean Corpuscular Hgb 33.4 pg (27.0-31.0); Platelet Count 271 10^3/uL (130-400); Red Blood Cell Count 2.99 10^6/uL (4.20-5.40); Red Cell Dist. Width 15.7 % (11.5-14.5); White Blood Cell Count 8.3 10^3/uL (4.8-10.8)
[2024-05-13 07:01] LABS: ALT (SGPT) < 10 U/L (0-35); AST (SGOT) 18 U/L (14-36); Albumin 3.1 g/dl (3.5-5.0); Alkaline Phosphatase 70 U/L (38-126); Blood Urea Nitrogen 9 mg/dl (7-17); Calcium 6.8 mg/dl (8.4-10.2); Carbon Dioxide 23 mmol/L (22-30); Chloride 103 mmol/L (98-107); Estimated Creatinine Clearance 48 ml/min; Glucose 92 mg/dl (70-99); Potassium 3.3 mmol/L (3.5-5.1); Sodium 135 mmol/L (135-145); Total Bilirubin 0.4 mg/dl (0.2-1.3); Total Protein 5.4 g/dl (6.3-8.2); eGFR > 60.00
[2024-05-13 07:15] VITALS: BP 153/87
[2024-05-13] MEDS: PROTONIX IV 40 MG IV (08:38)
[2024-05-13] MEDS: RESTASIS 0.05% OPHTHALMIC EMULSION 1 DROPS BOTH EYES (08:38)
[2024-05-13] MEDS: NSS (PRESERVATIVE FREE) 10 ML IV (08:38)
--- NOTE | 2024-05-13 08:57 | W.PN.HOSP.TC ---
Today's Communication/Plan
-
dc today
Assessment / Plan
Assessment / Plan
Ms. Zeinab Machado is an 83yo F pmh HTN, ulcerative colitis, diverticulosis, scleroderma, anemia, and thrombocytopenia admitted for a lower GI bleed.
Lower GI bleed
- Abdomen/pelvis CT: Active gastrointestinal hemorrhage in the distal sigmoid colon. Advanced aortic atherosclerotic changes. Stenosis of celiac axis. 1.2 cm rim calcified splenic artery aneurysm. Small hiatal hernia. Distal esophagus distended with
air and ingested material compatible with dysmotility or reflux. Bilateral renal cortical scarring and cortical thinning
- hold ASA, amlodipine
- ok to restart hydroxyurea
- IV PPI
- angiogram - Successful coil embolization distal ROGE branch vessel arising between SR and sigmoid arteries
- GI consulted
Hypokalemia
- replete w KCl 40mg x2
Anemia
- dropping, but stabilized
- transfuse for Hb<7
- received 1 unit PRBCs
Hx fall 2 weeks ago
- PT/OT
Dysuria
- urinalysis w reflex to culture
HLD
- cont rosuvastatin
Depression
- cont sertraline
Scleroderma
UC
- restart hydroxyurea
Underweight
Diet: low residue
DVT PPX: SCDs
Code status: DNR
Anticipated Discharge: Today
Subjective/Interval History
-
Date of Service: May 13, 2024
Ms. Zeinab Machado is an 83yo F pmh HTN, ulcerative colitis, diverticulosis, scleroderma, anemia, and thrombocytopenia admitted for a lower GI bleed. No acute overnight events
Objective Data
-
Labs:
Laboratory Results
05/13/24
05:40
WBC 8.3
Hgb 10.0 L
Hct 27.8 L
Plt Count 271
Sodium 135
Potassium 3.3 L
Chloride 103
Carbon Dioxide 23
BUN 9
Creatinine 0.6
Glucose 92
Calcium 6.8 L*
Total Bilirubin 0.4
AST 18
ALT < 10
Alkaline Phosphatase 70
Vital Signs:
Vital Signs
Temp Pulse Resp BP Pulse Ox
97.8 F 93 16 153/87 98
05/13/24 07:15 05/13/24 07:15 05/13/24 07:15 05/13/24 07:15 05/13/24 07:15
I&O
05/12/24 05/13/24 05/14/24
06:59 06:59 06:59
Intake Total 1705 / 1705
Output Total 3625 / 3625 700 / 700
Balance -1920 / -1920 -700 / -700
Review of Systems
-
History Source: Patient
Constitutional: Reports No Symptoms
EENT: Reports No Symptoms Reported
Respiratory: Reports No Symptoms
Cardiac: Reports No Symptoms
Abdomen/GI: Reports Diarrhea
Genitourinary: Reports No Symptoms
Musculoskeletal: Reports No Symptoms
Skin: Reports No Symptoms
Neuro: Reports No Symptoms
Physical Exam
-
General: Well Developed and Well Nourished
HEENT: Normocephalic, Atraumatic and Anicteric
Respiratory: Clear to Auscultation
Cardiac: Regular Rhythm and S1/S2
GI: Soft, Nontender, Nondistended and Normal Bowel Sounds
Genito-urinary: No Costovertebral Tender
Musculoskeletal: No Clubbing, No Cyanosis and No Edema
Skin: Warm and Dry
Neuro: AO x 3
Psych: Calm
--- NOTE | 2024-05-13 09:12 | W.PN.UPDATE ---
Addendum entered and electronically signed by Shayne Sanon MD 05/13/24 11:10:
Case discussed with Dr. Layne, pt can go back on ASA on d/c.
Original Note:
Update Note
Progress Note Update
I saw and evaluated the patient. I reviewed the resident�s note and agree with findings and plan as documented in the resident�s note.
Patient reports a loose stool that had some maroon characteristics to it yesterday around 11 PM
Gen: NAD, AAOx3.
Eyes: EOMI, PERRLA, no scleral icterus.
Neck: supple.
CV: RRR, +S1/S2, no m/r/g.
Resp: CTAB anteriorly, no rales, wheezes, or rhonchi.
Abd: +BS, soft, NT, ND
Skin: No rashes.
Neuro: remains CN 2-12 intact, non-focal.
Psych: Normal mood and affect.
Acute blood loss anemia due to rectal bleeding, likely diverticular:
-s/p successful coil embolization distal ROGE branch vessel arising between SR and sigmoid arteries on 05/10/24
-s/p 1U pRBCs on 05/11/24 with appropriate rise in Hb
-holding home ASA
-advanced to LR
-s/p IVFs
-GI following
Other problems:
HLD: cont statin
Essential HTN: restart home Norvasc
GERD: cont PPI
UC, scleroderma: cont hydroxyurea
DNR/SCDs
Total time spent on d/c = 35 min. This included today's physical exam, progress note, review of laboratory and diagnostic data, preparation of discharge documents and prescriptions, and discussions about the pt's hospital course and discharge plan
with the patient and other medical instrument cable fabricator involved in the patient's care.
[2024-05-13] MEDS: KCL ELIXIR 40 MEQ TUBE ×2 (09:31→12:05)
[2024-05-13] MEDS: NORVASC 5 MG PO (09:31)
--- NOTE | 2024-05-13 11:12 | W.DCSUMMARY ---
Discharge Summary
Discharge Data
Date of Admission: 05/10/24
Date of Discharge: 05/13/24
-
Pending Results: No
Hospital Course
Discharging Physician : Dr. Cyn Valenzuela, Dr. Shayne Sanon
Disposition : SNF
Primary care physician : Luan Pedraza
Principal Discharge diagnosis : Acute blood loss anemia due to rectal bleeding, likely diverticular
Chronic Discharge diagnosis : HTN, ulcerative colitis, diverticulosis, scleroderma, anemia, and thrombocytopenia
Hospital Course : Admitted for a lower GI bleed. Pt developed rectal bleeding the night before admission. Had several episodes of significant bright red blood per rectum. Occasionally passed blood clots. Recently seen by GI for rectal prolapse and
referred to colorectal surgery. GI consulted. Active GI hemorrhage on abdomen/pelvis CT. Arteriogram not indicated intially due to low positive yield and high chance of spontaneous cessation of bleeding. The next day, the pt's Hb dropped to 7.7 from
9.4. Transfused 1 unit pRBCs with improvement in Hb. Pt then taken to IR for angiogram and had successful embolization. Pt tolerated procedure well. Continued to pass blood clots per rectum, but this resolved. Pt w hx fall and recommended for PT on
discharge. Pt hemodynamically stable, afebrile.
Important imaging findings :
Abdomen/pelvis CT: Active gastrointestinal hemorrhage in the distal sigmoid colon. Advanced aortic atherosclerotic changes. Stenosis of celiac axis. 1.2 cm rim calcified splenic artery aneurysm. Small hiatal hernia. Distal esophagus distended with
air and ingested material compatible with dysmotility or reflux. Bilateral renal cortical scarring and cortical thinning
Procedure findings :
Angiogram - Successful coil embolization distal ROGE branch vessel arising between SR and sigmoid arteries. Pt tolerated procedure well.
Discharge Plan
-
Patient Disposition: Custodial/SNF
Discharge Diagnosis/Procedures: Acute blood loss anemia due to rectal bleeding, likely diverticular
Condition: Good
Diet: Low Sodium and Low Residue
Activity: As tolerated
Driving Restrictions: As prior to admission
Bathing Restrictions: None
Activity Restrictions/Additional Instructions:
CBC in 1 week, script from PCP
Instructions: GI bleed - Discharge instructions, Diverticulosis
Referrals:
Darnell Brown MD [Active] - in two to three weeks
Luan Pedraza MD [Family Provider] - in less than 1 week
Servando Hernandez MD [Active] - in two to three weeks
Prescriptions:
Continued
latanoprost 1 DROP drops
1 drp BOTH EYES HS
aspirin 81 MG tablet,delayed release (DR/EC)
81 mg PO DAILY
hydroxyurea 500 MG capsule
500 mg PO MOWEFR@0900
famotidine 20 MG tablet
20 mg PO DAILY
sertraline 50 MG tablet
50 mg PO HS
Prolia 60 MG/ML syringe
60 mg SQ [id number]
Patient Comments:
amlodipine 5 mg tablet
5 mg PO DAILY
omeprazole 40 mg capsule,delayed release(DR/EC)
40 mg PO BID
rosuvastatin 5 mg tablet
5 mg PO MOWEFR@1900
acetaminophen [Tylenol] 325 mg Tablet
650 mg PO Q6HPRN PRN (Reason: mild pain)
psyllium Packet
1 packet PO DAILY
cyclosporine [Restasis] 0.05 % Dropperette
1 drp BOTH EYES Q12H
calcium carbonate-vitamin D3 [Calcium 500 + D] 500 mg-10 mcg (400 unit) Tablet
1 tab PO DAILY
Discharge Orders:
Discharge Patient (As Directed); Ordered 05/13/24
Ordered By: Shayne Sanon
Discharge Date and Time
Print Language: AFGHAN
--- NOTE | 2024-05-13 11:36 | CM ---
Addendum entered by Janie Pena 05/13/24 11:43:
IMM benefit explained; form signed and dated
Patient reported that she has several walkers at home; cancelled request for script
Original Note:
Met with patient and son at bedside to discuss PT's post acute recommendation to go to SNF; patient refuses SNF; prefers to go home with [facility] for PT
Contacted PT and requested they see patient and ambulate her before she is discharged per Son's request;
Sent a Text to Attending and requested a Script for a Rolling Walker at Discharge
Plan: home with home health today
[2024-05-13 12:22] VITALS: BP 158/83; BP 162/95; PULSE 91; O2SAT 97
[2024-05-13 13:09] VITALS: BP 136/83
== END 2024-05-13 13:15 | disposition home health service (06) | DRG 357 ==
LOC: 4 EAST ACU 04:10
PROVIDERS: Nurse Practitioner Adult Health; Nurse Practitioner Family; Radiology Vascular & Interventional Radiology; ADMITTING PHYSICIAN Internal Medicine; ATTENDING PHYSICIAN Internal Medicine; CONSULT PHYSICIAN Internal Medicine Gastroenterology; EMERGENCY PHYSICIAN Emergency Medicine; FAMILY PHYSICIAN Family Medicine
PROC: B41B1ZZ Fluoroscopy of Other Intra-Abdominal Arteries using Low Osmolar Contrast (ICD-10-PCS; 2024-05-10)
PROC: B4151ZZ Fluoroscopy of Inferior Mesenteric Artery using Low Osmolar Contrast (ICD-10-PCS; 2024-05-10)
PROC: 04L23DZ Occlusion of Gastric Artery with Intraluminal Device, Percutaneous Approach (ICD-10-PCS; 2024-05-10)
PROC: 30233N1 Transfusion of Nonautologous Red Blood Cells into Peripheral Vein, Percutaneous Approach (ICD-10-PCS; 2024-05-11)
DX: K57.31 Diverticulosis of large intestine without perforation or abscess with bleeding (principal); D62 Acute posthemorrhagic anemia; Z68.1 Body mass index [BMI] 19.9 or less, adult; E87.1 Hypo-osmolality and hyponatremia; K51.90 Ulcerative colitis, unspecified, without complications; R63.6 Underweight; M34.9 Systemic sclerosis, unspecified; E87.6 Hypokalemia; Z59.89 Other problems related to housing and economic circumstances
CPT/HCPCS: 36246; 37244; 74174; 75726; 76937; 80053; 81003; 81015; 85014; 85018; 85025; 85027; 86850; 86900; 86901; 86920; 87077; 87086; 87186; 96365; 97116; 97163; 97167; 99152; 99153; 99285; C1769; C1887; P9016; Q9967

== ENCOUNTER 2024-08-11 12:11 | Inpatient (IN) | payer OTHER, SELFPAY ==
[2024-07-31 11:27] LABS: Hematocrit 31.9 % (37.0-47.0); Hemoglobin 10.5 g/dL (12.0-16.0); Mean Corp Hgb Conc. 32.9 g/dL (33.0-37.0); Mean Corpuscular Hgb 30.6 pg (27.0-31.0); Mean Platelet Volume 9.9 fL (7.4-10.4); Platelet Count 208 10^3/uL (130-400); Red Blood Cell Count 3.43 10^6/uL (4.20-5.40); White Blood Cell Count 3.8 10^3/uL (4.8-10.8)
[2024-07-31 11:30] LABS: INR 0.98; PT 13.3 Sec (11.4-14.6)
[2024-07-31 11:31] LABS: APTT 28.7 Sec (23.4-35.0)
[2024-07-31 11:53] LABS: ALT (SGPT) 12 U/L (0-35); AST (SGOT) 22 U/L (14-36); Albumin 4.1 g/dl (3.5-5.0); Alkaline Phosphatase 73 U/L (38-126); Blood Urea Nitrogen 16 mg/dl (7-17); Calcium 8.6 mg/dl (8.4-10.2); Carbon Dioxide 30 mmol/L (22-30); Chloride 100 mmol/L (98-107); Glucose 81 mg/dl (70-99); Potassium 4.1 mmol/L (3.5-5.1); Sodium 139 mmol/L (135-145); Total Bilirubin 0.4 mg/dl (0.2-1.3); Total Protein 6.9 g/dl (6.3-8.2); eGFR > 60.00
[2024-07-31 14:05] VITALS: BMI 17.0
[2024-08-11] VITALS (12 sets, daily range): BP systolic 87–138; BP diastolic 59–78; BMI 17.0
[2024-08-11] MEDS: CELEBREX 200 MG PO (13:24)
[2024-08-11] MEDS: ENTEREG 12 MG PO (13:24)
[2024-08-11] MEDS: TYLENOL 1000 MG PO ×2 (13:24→23:21)
[2024-08-11] MEDS: NORMOSOL-R/PLASMALYTE-A 1000 IV ×2 (13:25→19:35)
[2024-08-11] MEDS: EMEND 40 MG PO (13:34)
[2024-08-11] MEDS: HEPARIN 5000 UNITS SC (14:56)
--- NOTE | 2024-08-11 18:28 | W.IMMPOSTOP ---
Surgical Immed Post Op Note
-
Primary Surgeon: Foreign Roland MD
Assisting Surgeon: JENIFER Iglesias
Pre-op Diagnosis: Rectal prolapse
Post-op Diagnosis: Rectal prolapse
Procedure Performed: Robotic posterior suture rectopexy; lysis of adhesions greater than 30 minutes, flexible sigmoidoscopy, laparoscopic tap block
Anesthesia Type: General
Specimen / Cultures: None
Estimated Blood Loss: 25 mL
Complications: None
Operative Findings: Redundant sigmoid colon with collazo-diverticula; multiple adhesions from sigmoid and rectosigmoid colon to pelvis and adnexal structures requiring lysis; rectosigmoid mesentery retracted to the left lateral pelvis, likely due to
chronic inflammation; easily identified bilateral ureters due to minimal retroperitoneal fat; dissected posteriorly down to the pelvic floor; divided right lateral stalk down to the distal rectum and the left lateral stalk down to the mid rectum;
ensured rectum was straightened out and was appropriately taught; secured right lateral rectal ligament to the sacral promontory using 2-0 silk x 2; perform flexible sigmoidoscopy to ensure no full-thickness sutures and no significant kinking
leading to obstruction; close peritoneum with 3-0 V-Loc
--- NOTE | 2024-08-11 18:35 | OR.RPT ---
Operative Report
Operative Report
DATE OF OPERATION: 08/11/2024
SURGEON: Foreign Roland MD
PREOPERATIVE DIAGNOSIS: Rectal prolapse
POSTOPERATIVE DIAGNOSIS: Rectal prolapse
OPERATION: Robotic posterior suture rectopexy, adhesiolysis greater than 30 minutes, flexible sigmoidoscopy, laparoscopic TAP block
ASSISTANTS:
1. JENIFER Iglesias
ANESTHESIA: General
ESTIMATED BLOOD LOSS: 25 mL mL
IVF: 1.1 L
URINE OUTPUT: 250 mL
FINDINGS:
1. Redundant sigmoid colon with innumerable diverticula; significant adhesions between sigmoid and rectosigmoid to surrounding pelvis and remaining adnexal structures
2. Flexible sigmoidoscopy did not show full-thickness sutures or any significant kinking
SPECIMENS:
1. None
DRAINS: None
COMPLICATIONS: No immediate complications.
INDICATIONS: The patient is a 84-year-old female who presented to my office for rectal prolapse. She was initially found to have an asymmetric partial rectal prolapse. Initially, nonoperative management was elected. However, the patient had
worsening symptoms. A subsequent exam showed full-thickness rectal prolapse of 3 to 4 cm. Continued nonoperative management versus surgical therapy was discussed, including several different options for rectal prolapse repair. After lengthy
discussion, the patient elected to proceed with suture rectopexy. The operation was discussed with the patient in detail, including the risks, benefits and alternatives. Risks described included, but not limited to, bleeding, infection, damage to
nearby structures (i.e.- ureter, bowel, solid organs), incisional hernia, conversion to open, recurrence of prolapse, complications with mesh if used (ie- mesh infection, mesh erosion), conversion to another type of rectal prolapse repair (ie-
Altemeier, ventral mesh rectopexy), and anesthetic risks, including but not limited to PA, stroke, DVT/PE and respiratory failure. The patient understood and agreed to proceed.
PROCEDURE IN DETAIL: The patient was taken to the operating room and placed on the operating table in supine position. Sequential compression devices were placed bilaterally. General anesthesia was induced and the patient was intubated without
complication. The patient was placed in lithotomy position with both arms tucked. Sanford catheter was placed with sterile technique. The abdomen was prepped and draped in a sterile fashion. A time-out was performed verifying the correct patient,
procedure, operative site, positioning, and special equipment. Anesthesia placed an orogastric tube. Preoperative antibiotics were given. A marking pen was used to alex out the midline.
An 8 mm incision at Valencia's point was made with an 11 blade scalpel. A Veress needle was used to gain abdominal access. After 3 clicks, the insufflation was connected to the Veress needle and the opening pressure was noted to be less than 8 mmHg.
The abdomen was insufflated to a pressure of 12 mmHg. An 8 mm robotic trocar was inserted. The robotic camera was advanced and intra-abdominal placement was confirmed. The abdomen was examined. No injuries were noted from port entry or from the
Veress needle. The remaining three 8mm robotic ports were placed under direct visualization in a diagonal fashion from Valencia's point to the right lower quadrant, as well as an 8mm assist port in the right lateral mid-abdomen, taking care to avoid
injury to the right epigastric vessels. The left upper quadrant port was changed to the air seal port. The patient was placed in steep trendelenburg and [id number]. The robot was docked from the patient's left side. From the RLQ to Valencia's
point, the instruments introduced were the scissors, camera, bipolar grasper and tip-up grasper, respectively.
The sigmoid colon was significantly redundant with innumerable diverticula. Although the sigmoid colon did not appear inflamed, it was impossible to grasp the sigmoid colon without grabbing diverticula with likely impacted stool. Therefore, great
care was undertaken to avoid undue tension on the sigmoid colon, which was handled by retracting the epiploica. There were adhesions noted between the sigmoid and rectosigmoid colon to the left lateral pelvis and adnexal structures. These
adhesions were lysed meticulously with sharp dissection, avoiding injury to the colon or adnexal structures. The rectosigmoid colon then easily retracted out of the pelvis. The small bowel was retracted out of the pelvis. I placed a Ray-Jackie
sponge within the abdomen to assist with retracting the small bowel. I retracted the rectosigmoid anteriorly and cephalad. The mesentery of the rectosigmoid had retracted inward toward the left lateral pelvis, likely due to prior inflammation.
The bilateral ureters were easily identified due to minimal retroperitoneal fat. I scored the peritoneum overlying the sacral promontory and cleared a space on the periosteum for the fixation sutures. I carefully dissected down the presacral
plane, avoiding injury to the presacral venous plexus. I dissected down all the way to the pelvic floor. I confirmed by performing a JT and I felt the robotic instrument at about 2 to 3 cm from the anal verge. I took this dissection laterally. I
scored the peritoneum overlying the right pelvis up to the anterior reflection. I divided the right lateral stalk down to the lower rectum. I dissected the left lateral stalk down to the mid rectum. At this point, the rectum was completely
mobilized. I did not divide the lateral stalks completely in order to avoid worsening constipation. Anteriorly, the rectouterine pouch extended essentially all the way down to the pelvic floor. Therefore, I did not do much additional dissection
in the anterior plane besides dividing the peritoneum.
I grasped the right lateral rectal ligament and applied tension. I applied the appropriate amount of tension to pull the rectum up and make it slightly taut, but without placing undue tension on the rectum to cause a kink. I placed 2 stitches of
2-0 silk from the right lateral rectal ligament into the periosteum of the sacral promontory. The amount of tension on the rectum appeared appropriate after the stitches were placed. I performed a flexible sigmoidoscopy and there was no
full-thickness bites of suture and no significant kinking of the rectum at the location of the fixation stitches. I checked for hemostasis, which was assured. I closed the peritoneum of the right pelvis using a running 3-0 V-lock starting at the
anterior reflection and bringing this up to the sacral promontory.
I checked hemostasis once more, which was assured. The Ray-Jackie sponge was removed. The robotic instruments were removed and the robot was undocked. Using laparoscopic visualization, a TAP block was performed using a total of 30 mL of 0.25%
Marcaine with epinephrine mixed with dexamethasone and injecting in the transverse abdominis plane bilaterally. The remaining ports were removed under direct visualization and no bleeding was noted. The incisions were irrigated. The remaining 30
cc of 0.25% Marcaine with epinephrine mixed with dexamethasone were injected around the incisions. The incisions were closed with running subcuticular 4-0 Monocryl and dressed with Dermabond.
At this point, the procedure was complete. The patient was awoken and extubated without complication. All needle, sponge and instrument counts were reported as correct. The patient tolerated the procedure well and was transferred to the recovery
room in stable condition with the sanford in place.
DICTATED BY: Foreign Roland MD
[2024-08-11] MEDS: DILAUDID 0.25 MG IV ×2 (19:03→19:32)
[2024-08-11] MEDS: ZOFRAN 4 MG IV (20:24)
[2024-08-11] MEDS: OSCAL 500 + D PO (20:48)
[2024-08-11] MEDS: PROTONIX PO (20:48)
[2024-08-11] MEDS: RESTASIS 0.05% OPHTHALMIC EMULSION 1 DROPS BOTH EYES (20:50)
[2024-08-11] MEDS: METAMUCIL, KONSYL 1 PACKET PO (20:50)
--- NOTE | 2024-08-11 20:57 | PTCARENOTE ---
Pt arrived to [facility] from PACU at 1945 in a bed. 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 SCDs on pt. 100% on 2L. Pt son at bedside. Pt c/o nausea. Zofran given. Pt oriented to room. Bed locked and in lowest position. Call blunt within reach. Care ongoing.
[2024-08-11] MEDS: XALATAN OPHTHALMIC SOLUTION 1 DROP BOTH EYES (22:46)
[2024-08-11] MEDS: ZOLOFT 50 MG PO (22:46)
[2024-08-11] MEDS: MYLICON 80 MG PO (23:05)
[2024-08-12 03:20] VITALS: BP 118/75
[2024-08-12] MEDS: ZOFRAN 4 MG IV (03:53)
[2024-08-12] MEDS: DILAUDID 0.25 MG IV ×2 (04:14→09:26)
[2024-08-12 05:11] VITALS: BMI 16.7
[2024-08-12] MEDS: TYLENOL 1000 MG PO ×3 (06:07→17:21)
[2024-08-12 07:00] VITALS: BP 117/64
[2024-08-12 07:25] LABS: Hematocrit 28.7 % (37.0-47.0); Hemoglobin 9.9 g/dL (12.0-16.0); Mean Corp Hgb Conc. 34.5 g/dL (33.0-37.0); Mean Corpuscular Hgb 30.8 pg (27.0-31.0); Mean Corpuscular Volume 89.4 fL (81.0-99.0); Mean Platelet Volume 8.8 fL (7.4-10.4); Platelet Count 227 10^3/uL (130-400); Red Blood Cell Count 3.21 10^6/uL (4.20-5.40); Red Cell Dist. Width 16.5 % (11.5-14.5); White Blood Cell Count 4.9 10^3/uL (4.8-10.8)
[2024-08-12 08:04] LABS: Blood Urea Nitrogen 9 mg/dl (7-17); Calcium 7.1 mg/dl (8.4-10.2); Carbon Dioxide 23 mmol/L (22-30); Chloride 98 mmol/L (98-107); Estimated Creatinine Clearance 46 ml/min; Glucose 111 mg/dl (70-99); Magnesium 2.5 mg/dl (1.6-2.3); Potassium 3.4 mmol/L (3.5-5.1); Sodium 132 mmol/L (135-145); eGFR > 60.00
[2024-08-12 08:58] LABS: Absolute Neutrophils -Man Diff 4.2 10^3/uL (1.4-6.5); Band Neutrophils 9 % (0-3); Lymphocytes 11 % (20-51); Monocytes 1 % (2-9); Myelocytes 1 % (-); Normal RBC Morphology No; Platelets Checked Yes; Segmented Neutrophils 78 % (42-75)
[2024-08-12 08:59] LABS: Anisocytosis 1+; Hypochromasia 2+; Microcytosis 2+; Total Cells Counted 100
[2024-08-12] MEDS: MIRALAX 17 GRAMS PO (09:24)
[2024-08-12] MEDS: ENTEREG 12 MG PO ×2 (09:24→20:23)
[2024-08-12] MEDS: PROTONIX 40 MG PO ×2 (09:24→20:23)
[2024-08-12] MEDS: NORVASC 10 MG PO (09:24)
[2024-08-12] MEDS: METAMUCIL, KONSYL 1 PACKET PO ×2 (09:24→20:23)
[2024-08-12] MEDS: OSCAL 500 + D 500 MG PO ×2 (09:24→20:24)
[2024-08-12] MEDS: ASPIR LOW (ENTERIC COATED) 81 MG PO (09:24)
[2024-08-12] MEDS: RESTASIS 0.05% OPHTHALMIC EMULSION 1 DROPS BOTH EYES ×2 (09:25→20:23)
[2024-08-12 11:30] VITALS: BP 130/64
[2024-08-12] MEDS: NORMOSOL-R/PLASMALYTE-A 1000 IV (11:52)
--- NOTE | 2024-08-12 12:11 | W.PN.CRS1 ---
Today's Communication / Plan
-
Void trial
Pain management
Assessment/Plan
-
84 yo female with h/o rectal prolapse now POD #1 Robotic posterior suture rectopexy; lysis of adhesions greater than 30 minutes, flexible sigmoidoscopy, laparoscopic tap block
AFVSS
Tolerating diet, following for bowel recovery
--C/W IV/PO analgesics
--C/W diet as tolerated
--Bowel regimen with miralax
--Continue home meds
--OOB/Ambulate
--Multimodal analgesics, avoid narcotics as able d/t side effects of n/v
--D/C IVF
--Gregorio out for voiding trial
--Lovenox and SCDS for vte ppx
Subjective Data
Procedure
08/11/2024 Robotic posterior suture rectopexy; lysis of adhesions greater than 30 minutes, flexible sigmoidoscopy, laparoscopic tap block
Subjective Data
Date of Service: August 12, 2024
Patient seen and examined at bedside with Dr. Garza. Melida n/v. Not yet passing flatus. Had breakfast without increased pain/distention. OOB to chair. Pain is manageable.
Objective Data
-
Vital Signs
Temp Pulse Resp BP Pulse Ox
98.0 F 79 16 130/64 99
08/12/24 11:30 08/12/24 11:30 08/12/24 11:30 08/12/24 11:30 08/12/24 11:30
Intake & Output
08/11/24 08/12/24 08/13/24
06:59 06:59 06:59
Intake Total 580 / 580
Output Total 1125 / 1125 200 / 200
Balance -545 / -545 -200 / -200
Intake:
Oral fluids 480 / 480
IV fluids (Total) 100 / 100
normosol 100 / 100
Output:
Urine, Gregorio 1125 / 1125 200 / 200
Other:
Number of approximated LARGE 1
amounts of urine
Lab Results
08/12/24 05:59
08/12/24 05:59
Physical Exam
-
General: No Acute Distress
Abdomen: Soft, Distended (mild) and Tender (expected incisional)
Incision: Clear, Dry, Intact
[2024-08-12] MEDS: MYLICON 80 MG PO (14:33)
[2024-08-12 15:00] VITALS: BP 130/63
--- NOTE | 2024-08-12 15:03 | CM ---
CM met with pt, son and DIL bedside
Pt [place] alone in [place] with 1 ARETH[address]
Is indep at home with [employer] drives+
Utilizes a SPC while in the community
Hx with [facility] and [facility], preference is [facility]
Pt has a [facility] at home for use as needed
PCP-Charlette Arizmendi
Rx- [facility] (closes at 3PM on Sundays)
Per PT eval, [facility] recs
Referral made to [facility] per request
Discharge Disposition- anticipate home with [facility]
[2024-08-12] MEDS: LOVENOX 30 MG SC (17:13)
[2024-08-12] MEDS: PEPCID 20 MG PO (17:17)
[2024-08-12 19:05] VITALS: BP 139/79
[2024-08-12] MEDS: TUMS CHEWABLE TABLET 400 MG PO (20:30)
[2024-08-12] MEDS: ZOLOFT 50 MG PO (21:47)
[2024-08-12] MEDS: XALATAN OPHTHALMIC SOLUTION 1 DROP BOTH EYES (22:21)
[2024-08-12 23:05] VITALS: BP 140/75
[2024-08-13] MEDS: TYLENOL 1000 MG PO ×2 (00:25→05:44)
[2024-08-13 03:10] VITALS: BP 157/88
[2024-08-13 05:50] VITALS: BMI 17.3
[2024-08-13 07:00] VITALS: BP 137/74
[2024-08-13] MEDS: TORADOL 15 MG IV (08:23)
[2024-08-13] MEDS: NORVASC 10 MG PO (08:24)
[2024-08-13] MEDS: MIRALAX PO (08:25)
[2024-08-13] MEDS: ASPIR LOW (ENTERIC COATED) 81 MG PO (08:25)
[2024-08-13] MEDS: OSCAL 500 + D 500 MG PO (08:25)
[2024-08-13] MEDS: PROTONIX 40 MG PO (08:25)
[2024-08-13] MEDS: ENTEREG PO (08:25)
[2024-08-13] MEDS: METAMUCIL, KONSYL PO (08:25)
[2024-08-13] MEDS: RESTASIS 0.05% OPHTHALMIC EMULSION 1 DROPS BOTH EYES (08:26)
--- NOTE | 2024-08-13 09:48 | W.PN.CRS1 ---
Today's Communication / Plan
-
Dispo planning
Assessment/Plan
-
84 yo female with h/o rectal prolapse now POD #2 Robotic posterior suture rectopexy; lysis of adhesions greater than 30 minutes, flexible sigmoidoscopy, laparoscopic tap block
AFVSS
Tolerating diet, passing stool/flatus
SCHMITZ and Right shoulder pain (chronic, did have recent steroid injection)
--Multimodal analgesics. Toradol this am given SCHMITZ
--C/W diet as tolerated
--Bowel regimen with miralax
--Continue home meds
--OOB/Ambulate
--Lovenox and SCDS for vte ppx
D/C later today once pain well managed
Subjective Data
Procedure
08/11/2024 Robotic posterior suture rectopexy; lysis of adhesions greater than 30 minutes, flexible sigmoidoscopy, laparoscopic tap block
Subjective Data
Date of Service: August 13, 2024
Patient seen and examined at bedside with Dr. Garza. Denies n/v Tolerating diet. c/o Headache today. Baseline difficulty with meal portions, but no changes. Passing flatus, had a BM without difficulty. ABD pain is minimal. Some right shoulder pain.
Objective Data
-
Vital Signs
Temp Pulse Resp BP Pulse Ox
98.3 F 87 16 137/74 97
08/13/24 07:00 08/13/24 08:24 08/13/24 07:00 08/13/24 08:24 08/13/24 07:00
Intake & Output
08/12/24 08/13/24 08/14/24
06:59 06:59 06:59
Intake Total 580 / 580 1300 / 1300
Output Total 1125 / 1125 200 / 200
Balance -545 / -545 1100 / 1100
Intake:
Oral fluids 480 / 480 1300 / 1300
IV fluids (Total) 100 / 100
normosol 100 / 100
Output:
Urine, Gregorio 1125 / 1125 200 / 200
Other:
Number of approximated MODERATE 1
amounts of urine
Number of approximated LARGE 1
amounts of urine
Lab Results
08/12/24 05:59
08/12/24 05:59
Physical Exam
-
General: No Acute Distress
Abdomen: Soft, Non Distended and Tender (expected incisional)
Incision: Clear, Dry, Intact
[2024-08-13 11:05] VITALS: BP 126/76
--- NOTE | 2024-08-14 10:07 | W.DCSUMMARY ---
Discharge Summary
Discharge Data
Date of Admission: 08/11/24
Date of Discharge: 08/13/24
-
Pending Results: No
Hospital Course
Ms Machado is an 84 year old rectal prolapse and presented for robotic posterior suture rectopexy. She tolerated the procedure well without complication. Diet was able to be advanced and well tolerated with good bowel recovery post procedure. She had
minimal pain post operatively which was able to be managed without narcotics on date of discharge. She was discharged to home with outpatient follow up planned in the coming weeks.
Discharge Plan
-
Patient Disposition: Home (Routine Discharge)
Discharge Diagnosis/Procedures: Robotic posterior suture rectopexy
Condition: Good
Diet: As tolerated and Regular
Additional Diets: Return to your diet from prior to admission
Activity: No strenuous activity
Additional Activity: Do not lift over 10lbs (gallon of milk)
Bathing Restrictions: OK to Shower
Wound Care: Allow the glue to flake off your incisions over the next 2-3 weeks. Avoid scrubbing or picking off the glue. Do not soak in tubs or pools for the next 2-3 weeks.
Activity Restrictions/Additional Instructions:
Notify y our surgeon if you are having worsening pain, nausea with vomiting or a fever >100.5
Referrals:
Jaylen Arizmendi MD [Family Provider] -
Foreign Roland MD [Active] - in two to four weeks
Additional Discharge Medication Instructions: Take over the counter Tylenol or ibuprofen for pain
Prescriptions:
New
polyethylene glycol 3350 17 gram powder in packet
17 g PO DAILYPRN PRN (Reason: constipation) Qty: 1 0RF
Continued
latanoprost 1 DROP drops
1 drp BOTH EYES HS
aspirin 81 MG tablet,delayed release (DR/EC)
81 mg PO DAILY
hydroxyurea 500 MG capsule
500 mg PO SUTH
famotidine 20 MG tablet
20 mg PO QPM
sertraline 50 MG tablet
50 mg PO HS
psyllium Packet
1 packet PO BID
cyclosporine [Restasis] 0.05 % Dropperette
1 drp BOTH EYES Q12H
calcium carbonate-vitamin D3 [Calcium 500 + D] 500 mg-10 mcg (400 unit) Tablet
1 tab PO BID
Rx Instructions:
chewable
amlodipine 10 mg Tablet
10 mg PO DAILY
ferrous sulfate [iron] 325 mg (65 mg iron) Tablet
325 mg PO .5 TIMES A WEEK
esomeprazole magnesium 40 mg Capsule,Delayed Release(Dr/Ec)
40 mg PO BID
rosuvastatin [Crestor] 5 mg Tablet
5 mg PO MOWEFR
Evenity
1 dose IM MONTHLY
PreserVision AREDS
1 gum PO BID
acetaminophen 500 mg Tablet
1,000 mg PO DAILY PRN (Reason: pain)
Discontinued
Bowel Prep
1 dose PO DIRECTED
metronidazole 500 mg Tablet
500 mg PO PER PROTOCOL
Patient Comments:
Took at 1400,1500 on 08/10/24 and angain at 0600 on 08/11/24
neomycin 500 mg Tablet
500 mg PO PER PROTOCOL
Patient Comments:
took at 1400,1500 on 08/10/24 and again at 0600 on 08/11/24
Discharge Orders:
Discharge Patient (As Directed); Ordered 08/13/24
Ordered By: Shania Rhoades
Discharge Date and Time
Discharge Date/Time: 08/13/24 12:54
Print Language: MONTENEGRIN
== END 2024-08-13 12:54 | disposition home health service (06) | DRG 330 ==
LOC: 2 SOUTH 12:11
PROVIDERS: ADMITTING PHYSICIAN Surgery; FAMILY PHYSICIAN Family Medicine
PROC: 8E0W0CZ Robotic Assisted Procedure of Trunk Region, Open Approach (ICD-10-PCS; 2024-08-11)
PROC: 0DSP4ZZ Reposition Rectum, Percutaneous Endoscopic Approach (ICD-10-PCS; 2024-08-11)
DX: K62.3 Rectal prolapse (principal); Q43.8 Other specified congenital malformations of intestine; N73.6 Female pelvic peritoneal adhesions (postinfective)
CPT/HCPCS: 36415; 71046; 80048; 80053; 83735; 85025; 85027; 85610; 85730; 86850; 86900; 86901; 93005; 97163

== ENCOUNTER 2024-10-02 14:21 | Emergency (ER) | payer OTHER, SELFPAY ==
[2024-10-02 14:25] VITALS: BP 149/92
--- NOTE | 2024-10-02 15:45 | EDRN ---
Farzaneh Duggan NP in room w/ pt.
--- NOTE | 2024-10-02 15:47 | ED.GENMED ---
History of Present Illness
General
Chief Complaint: Head Injury
Source: patient
Exam Limitations: none
Time Seen by Provider: 10/02/24 15:23
Nursing documentation reviewed up to this point in time: agreed with
History of Present Illness
History of Present Illness:
Patient reports trip and fall at home. Fell forward and hit face on refrigerator. No LOC. Broke 4 upper front teeth. Complains of pain to her right shoulder and left knee, bruise to right hand. Brought to ED by family for eval. Incident
occurred today.
Past History
Past History
ED Past Medical History: GERD, HTN, Hypercholesterolemia, Psychiatric (MDD) and Other (sciatica , raynouds, diverticulitis, IBS, Anemia, Thrombocytopenia, scleroderma); Negative CAD
ED Past Surgical History: Gynecological (hysterectomy Partial) and Orthopedic (R median nerve wrap,, left patella repair. Back surgery, Right tendon arm repair); Negative Cardiac
Social History
Tobacco: Non-smoker
Alcohol: None
Drug: None
Personal:
Living: alone
Employment: Retired
Family History
Family History: CAD
Review of Systems
Review of Systems
Allergies reviewed?: Yes
All Other Systems: ROS reviewed and negative except as documented in HPI and ROS
Constitutional: Reports no symptoms
EENT: Reports other (Broken teeth: bilateral central incisors, bilateral lat incisors)
Respiratory: Reports no symptoms
Cardiac: Reports no symptoms
ABD/GI: Reports no symptoms
: Reports no symptoms
Musculoskeletal: Reports joint pain (pain to right shoulder, left knee)
Skin: Reports other (bruising right dorsal hand)
Neurological: Reports no symptoms
Psychiatric: Reports no symptoms
Phy Exam
General Physical Exam
General Presentation: well appearing and no apparent distress
General age: appears stated age
General Skin: warm and dry
General Habitus: normal
General Mental: alert
ENT Exam
ENT Exam: neck supple and other (broken central incisors, bilateral lateral incisors. No gingival trauma. Small hematoma to upper lip)
Eye Exam
Eye Exam: PERRL, EOMI, conjunctiva normal and globe normal
Neurological Exam
Neurological Exam: alert, oriented x3, no motor deficits, no sensory deficits and speech normal
Ronal Coma Scale
Eye Opening: Spontaneous
Verbal Response: Oriented
Motor Response: Obeys Commands
GCS Total Score: 15
Musculoskeletal Exam
Musculoskeletal Exam: other (Pain to right shoulder, left knee)
Skin Exam
Skin Exam: normal color, warm/dry, no rash and other (bruising right dorsal hand)
Psychiatric Exam
Psychiatric Exam: normal mood/affect
Course
Orders/Labs/Results
Orders:
Orders
10/02/24 14:31
Hand, Right 3 View [CR Hand - Right Min 3 Views] Urgent
Comment:
Reason For Exam: fall/injury
10/02/24 15:47
CT Head W/o Iv Contrast Urgent
Comment:
Reason For Exam: fall
Knee, Left 4 or More Views [CR Knee - Left 4 Or More View*] Urgent
Comment:
Reason For Exam: fall
Shoulder, Right, Trauma [CR Shoulder, Trauma - Right] Urgent
Comment:
Reason For Exam: fall
Vital Signs
Initial and Last Documented VS:
Initial Vital Signs
Temp Pulse Resp BP
98.0 F 73 20 149/92
10/02/24 14:25 10/02/24 14:25 10/02/24 14:25 10/02/24 14:25
Last Documented Vital Signs
Temp Pulse Resp BP Pulse Ox
98.0 F 88 26 159/95 100
10/02/24 14:25 10/02/24 16:55 10/02/24 16:55 10/02/24 16:55 10/02/24 16:55
*Radiology
Radiology exam reviewed: radiology read reviewed
*Pulse Oximetry
Patient hypoxic: no
*Critical Care Note
Total Time (30-74mins, 75-104mins- exclusive of procedures): Not Applicable
Update Note
Update Note:
Patient to ED after trip and fall at home. Broke bilateral central incisors, bilateral lateral incisiors. NO gingival injury. Has appointment in AM with her dentist for repair. Neurologically she is baseline. Head CT neg for acute findings.
Xrays all neg. Will discharge home with family, follow up with PCP.
ED Attending Note
-
Portions of this chart may have been created with voice recognition software.� Occasional wrong word or��sound alike� substitutions may have occurred due to the inherent limitations of voice recognition software.
Discharge Plan
Departure
Patient Disposition: Home (Routine Discharge)
Date of Disposition: 10/02/24
Time of Disposition: 17:18
Patient with high blood pressure during this ER visit?: No
Condition: Good
Covid-19: Not Applicable
Discharge Problem:
Head injury, Contusion of hand, Contusion of right shoulder, Contusion of knee, Dental trauma
Instructions: Head Injury in Adults (DC), Contusion (DC), Fractured Tooth
Prescriptions:
No Action
latanoprost 1 DROP drops
1 drp BOTH EYES HS
aspirin 81 MG tablet,delayed release (DR/EC)
81 mg PO DAILY
hydroxyurea 500 MG capsule
500 mg PO SUTH
famotidine 20 MG tablet
20 mg PO QPM
sertraline 50 MG tablet
50 mg PO HS
psyllium Packet
1 packet PO BID
cyclosporine [Restasis] 0.05 % Dropperette
1 drp BOTH EYES Q12H
calcium carbonate-vitamin D3 [Calcium 500 + D] 500 mg-10 mcg (400 unit) Tablet
1 tab PO BID
Rx Instructions:
chewable
amlodipine 10 mg Tablet
10 mg PO DAILY
ferrous sulfate [iron] 325 mg (65 mg iron) Tablet
325 mg PO .5 TIMES A WEEK
esomeprazole magnesium 40 mg Capsule,Delayed Release(Dr/Ec)
40 mg PO BID
rosuvastatin [Crestor] 5 mg Tablet
5 mg PO MOWEFR
Evenity
1 dose IM MONTHLY
PreserVision AREDS
1 gum PO BID
acetaminophen 500 mg Tablet
1,000 mg PO DAILY PRN (Reason: pain)
polyethylene glycol 3350 17 gram powder in packet
17 g PO DAILYPRN PRN (Reason: constipation) Qty: 1 0RF
Referrals:
Jaylen Arizmendi MD [Family Provider, Family Practice]
Activity Restrictions/Additional Instructions:
Follow up with your dentist in the AM
Interventions
Interventions:
*Risk Screen - Suicide Last Done: 10/02/24 14:25
*General Assessment Last Done: 10/02/24 15:54
*Neglect/Abuse Screening Last Done: 10/02/24 14:25
*ED- Fall Risk Assessment Last Done: 10/02/24 15:54
*ED COVID-19 Vaccine History Last Done: 10/02/24 15:54
ED- Neurological Assessment Last Done: 10/02/24 15:56
ED-Skin Assessment Last Done: 10/02/24 15:56
Discharge Date and Time
Print Language: GREEK
Musculoskeletal Injury Exam
Musculoskeletal Injury Exam
right shoulder:
Pain with Movement?: Moderate
Tender to palpation?: Moderate
Soft tissue swelling?: None
External deformity and angulation?: None
Contusion?: Moderate
Hematoma-local bleeding into tissue?: None
Strain- Sprain- Tear (Connective tissue injury)?: None
Crepitus with movement?: No
Joint instability?: No
Malalignment/deformity?: No
Range of motion: Limited (Baseline)
Distal skin color and temperature: normal-warm & good color
Capillary Refill: normal
Normal distal neurovascular exam?: Yes
Peripheral Pulses: radial (right): 3+
Right Knee:
Pain with Movement?: Moderate
Tender to palpation?: Moderate
Soft tissue swelling?: None
External deformity and angulation?: None
Joint effusion?: None
Contusion?: Moderate
Hematoma-local bleeding into tissue?: None
Strain- Sprain- Tear (Connective tissue injury)?: None
Crepitus with movement?: No
Joint instability?: No
Malalignment/deformity?: No
Range of motion: Full
Distal skin color and temperature: normal-warm & good color
Capillary Refill: normal
Normal distal neurovascular exam?: Yes
Right Hand:
Pain with Movement?: Moderate
Tender to palpation?: Moderate
Soft tissue swelling?: Mild
External deformity and angulation?: None
Joint effusion?: None
Contusion?: Moderate
Hematoma-local bleeding into tissue?: Moderate
Strain- Sprain- Tear (Connective tissue injury)?: None
Crepitus with movement?: No
Joint instability?: No
Malalignment/deformity?: No
Range of motion: Full
Distal skin color and temperature: normal-warm & good color
Capillary Refill: normal
Normal distal neurovascular exam?: Yes
[2024-10-02 15:50] VITALS: BMI 17.8
--- NOTE | 2024-10-02 15:51 | EDRN ---
Pt states she just finished eating and thinks her foot got caught on lip of tile floor. Pt fell into fridge and hit her head into fridge and her R face into tile floor. Pt states she has [address] and 2 other teeth loose of chipped. Pt
also hurt her R hand that is red and bruised. Pt also has pain is R shoulder (that has rotator cuff injury prior to fall) and has L knee pain.
[2024-10-02 16:55] VITALS: BP 159/95
== END 2024-10-02 17:40 | disposition home or self-care (01) ==
LOC: EMR 14:21
PROVIDERS: EMERGENCY PHYSICIAN Emergency Medicine; FAMILY PHYSICIAN Family Medicine
DX: S09.90XA Unspecified injury of head, initial encounter (principal); S09.93XA Unspecified injury of face, initial encounter; S40.011A Contusion of right shoulder, initial encounter; S60.221A Contusion of right hand, initial encounter; W01.0XXA Fall on same level from slipping, tripping and stumbling without subsequent striking against object, initial encounter; Y92.009 Unspecified place in unspecified non-institutional (private) residence as the place of occurrence of the external cause; K21.9 Gastro-esophageal reflux disease without esophagitis; I10 Essential (primary) hypertension; E78.00 Pure hypercholesterolemia, unspecified; F32.9 Major depressive disorder, single episode, unspecified; K58.9 Irritable bowel syndrome, unspecified; Z82.49 Family history of ischemic heart disease and other diseases of the circulatory system
CPT/HCPCS: 99284; 70450; 73030; 73130; 73564

== ENCOUNTER 2024-10-27 06:13 | Day surgery (SDC) | payer OTHER, SELFPAY ==
[2024-10-18 09:28] VITALS: BMI 16.8
[2024-10-18 11:38] LABS: Hematocrit 32.6 % (37.0-47.0); Hemoglobin 10.8 g/dL (12.0-16.0); Mean Corp Hgb Conc. 33.1 g/dL (33.0-37.0); Mean Corpuscular Hgb 31.4 pg (27.0-31.0); Mean Corpuscular Volume 94.8 fL (81.0-99.0); Mean Platelet Volume 9.4 fL (7.4-10.4); Platelet Count 260 10^3/uL (130-400); Red Blood Cell Count 3.44 10^6/uL (4.20-5.40); Red Cell Dist. Width 17.3 % (11.5-14.5); White Blood Cell Count 3.8 10^3/uL (4.8-10.8)
[2024-10-18 12:11] LABS: Blood Urea Nitrogen 18 mg/dl (7-17); Calcium 9.4 mg/dl (8.4-10.2); Carbon Dioxide 29 mmol/L (22-30); Chloride 102 mmol/L (98-107); Estimated Creatinine Clearance 40 ml/min; Glucose 86 mg/dl (70-99); Potassium 4.6 mmol/L (3.5-5.1); Sodium 139 mmol/L (135-145); eGFR > 60.00
[2024-10-19 13:16] LABS: ALT (SGPT) 12 U/L (0-35); AST (SGOT) 20 U/L (14-36); Albumin 4.6 g/dl (3.5-5.0); Alkaline Phosphatase 72 U/L (38-126); Total Bilirubin 0.5 mg/dl (0.2-1.3); Total Protein 7.3 g/dl (6.3-8.2)
[2024-10-19 13:51] LABS: Glycohemoglobin (HgbA1c) 5.6 % (4.0-5.6)
[2024-10-23 14:20] VITALS: BMI 17.0
[2024-10-27] VITALS (11 sets, daily range): BP systolic 141–174; BP diastolic 72–100
[2024-10-27] MEDS: CELEBREX 200 MG PO (09:27)
[2024-10-27] MEDS: TYLENOL 1000 MG PO (09:28)
[2024-10-27] MEDS: NORMOSOL-R/PLASMALYTE-A 1000 IV (09:55)
[2024-10-27] MEDS: ANCEF 5 IV (14:41)
== END 2024-10-27 14:45 | disposition home or self-care (01) ==
LOC: SDS 06:13
PROVIDERS: ATTENDING PHYSICIAN Specialist; FAMILY PHYSICIAN Family Medicine; OTHER PHYSICIAN Internal Medicine Cardiovascular Disease; OTHER PHYSICIAN Physician Assistant
DX: M19.011 Primary osteoarthritis, right shoulder (principal); Z96.611 Presence of right artificial shoulder joint
CPT/HCPCS: 23472; C1776; 36415; 73020; 80048; 80053; 83036; 85027; 86850; 86900; 86901; 87070; C1713